=== PATIENT | female | born 1945 | race Caucasian/White ===

== ENCOUNTER → 2019-11-03 09:13 | Outpatient (CLI) | payer MEDICARE, OTHER, SELFPAY ==
--- NOTE | 2019-11-03 | DI.ECHO.S_ITS ---
[facility] +---------+ : : [address] : [address] [place] : : : : [id number] : : : : Phone: [phone]---------+ Echocardiogram Report + + :Name: JERONIMO FLETCHER Study Date: 11/03/2019 Height: 62 in : :[facility] Weight: 101 lb : : Gender: Female BSA: 1.4 m2 : :: 1945 Age: 74 yrs BP: 142/87 mmHg: :Reason For Study: Tachycardia : :Ordering Physician: ALMAZ, : :PREM Performed By: Mela Hilario : :Referring: PREM MUSE : + + Interpretation Summary The left ventricle is normal in size. The ejection fraction is estimated to be 65-70%. The right ventricle is grossly normal size. The right ventricle is hyperdynamic. There is moderate tricuspid regurgitation. Compared to the prior echo exam, there has been no change in TR severity. The right ventricular systolic pressure is estimated to be at least 32 mmHg based on an estimated right atrial pressure of 3 mm Hg. Compared to the prior echo exam, there has been a decrease in the severity of pulmonary hypertension. Mild atherosclerotic plaque(s) in the aortic arch. Mild atherosclerotic plaque(s) in the descending aorta. Procedure: A two-dimensional transthoracic echocardiogram with color flow and Doppler was performed. The study quality was technically adequate. Comparison is made with the echocardiogram of 11/14/2016. The patient was in sinus rhythm with heart rates between 77-85 bpm during the exam. Left Ventricle: The left ventricle is normal in size. Proximal septal thickening is noted. There is no echo evidence for significant left ventricular outflow tract obstruction. There is no thrombus. The ejection fraction is estimated to be 65-70%. There are no focal wall motion abnormalities. Diastolic parameters suggest a relaxation abnormality of the left ventricle, consistent with probable normal filling pressures. Right Ventricle: The right ventricle is grossly normal size. A calcified moderator band is seen in the right ventricle. The right ventricle is hyperdynamic. Atria: Both atria are normal in size. Both atria have remained unchanged in size since the prior echo exam. There is no Doppler evidence for an interatrial shunt. Mitral Valve: There is mild to moderate mitral annular calcification. There is no mitral valve stenosis. There is mild mitral regurgitation. Aortic Valve: The aortic valve is trileaflet. The aortic valve is slightly calcified. There is no aortic valve stenosis. No aortic regurgitation is present. Tricuspid Valve: The tricuspid valve leaflets are thickened and/or calcified, but open well. There is moderate tricuspid regurgitation. The right ventricular systolic pressure is estimated to be at least 32 mmHg based on an estimated right atrial pressure of 3 mm Hg. Compared to the prior echo exam, there has been no change in TR severity. Compared to the prior echo exam, there has been a decrease in the severity of pulmonary hypertension. Pulmonic Valve: The pulmonic valve is not well seen, but is grossly normal. There is mild to moderate pulmonic regurgitation. Great Vessels: The aortic root is normal size. There is aortic root sclerosis/calcification. The ascending aorta is normal in size. Mild atherosclerotic plaque(s) in the aortic arch. Mild atherosclerotic plaque(s) in the descending aorta. The IVC is of normal diameter and collapses greater than 50% with a sniff. This suggests a low right atrial pressure of 3 mm Hg. Pericardium/ Pleura There is no pericardial effusion. There is an anterior echo-free space consistent with a fat pad. There is no pleural effusion. MMode/2D Measurements & Calculations LVIDd: 3.9 cm LVOT diam: 1.9 cm LVIDs: 2.2 cm Ao root diam: 3.3 cm FS: 43.9 % asc Aorta Diam: 3.1 cm EPSS: 0.45 cm Ao Arch Diam (Prox Trans): 2.7 cm IVSd: 0.69 cm LVPWd: 0.59 cm LV hawley. diameter/BSA (cm/m^2): 2.7 LV sys. diameter/BSA (cm/m^2): 1.5 LA A2 area: 10.8 cm2 RA long axis: 4.2 cm LA A4 area: 12.4 cm2 RA area: 10.9 cm2 LA length (vol): 4.2 cm RA vol: 24.0 ml LA vol: 26.9 ml RA : 16.8 ml/m2 LA vol index: 18.8 ml/m2 IVC diam: 1.1 cm RVD1 (basal): 2.8 cm TAPSE: 1.7 cm Doppler Measurements & Calculations Ao V2 max: 140.4 cm/sec LVOT Max Minor: 104.8 cm/sec Ao V2 mean: 97.9 cm/sec LV V1 max P.4 mmHg Ao max P.9 mmHg LV V1 VTI: 21.0 cm Ao mean P.3 mmHg EFFIE(I,D): 1.9 cm2 Ao V2 VTI: 30.2 cm EFFIE(V,D): 2.0 cm2 sev ratio: 0.70 EFFIE indexed to BSA (cm^2/m^2): 1.3 MV E max minor: 83.1 cm/sec TR max minor: 269.4 cm/sec MV A max minor: 104.1 cm/sec TR max P.0 mmHg MV E/A: 0.80 PA V2 max: 112.4 cm/sec Med Peak E' Minor: 9.3 cm/sec PA V2 mean: 72.1 cm/sec E/E' med: 8.9 PA mean P.5 mmHg Lat Peak E' Minor: 11.3 cm/sec PA pr(Accel): 32.8 mmHg E/E' lat: 7.3 E/e' average: 8.1 MV dec time: 0.17 sec SV(LVOT): 56.9 ml Reading Physician:05:54 PM
== END ==
PROVIDERS: Family Provider Physician Assistant Medical; PCP Physician Assistant Medical; Referring Provider Physician Assistant Medical; Visit Provider Internal Medicine Cardiovascular Disease
DX: I08.1 Rheumatic disorders of both mitral and tricuspid valves (principal); I70.0 Atherosclerosis of aorta; I47.1 Supraventricular tachycardia
CPT/HCPCS: 93306

== ENCOUNTER 2021-02-01 07:41 | Inpatient (IN) | payer MEDICARE, OTHER, SELFPAY ==
[2021-02-01] VITALS (22 sets, daily range): BP systolic 136–188; BP diastolic 70–88; PULSE 66–90; RESP 15–18; TEMP 36.1–37.1; O2SAT 95–100; BMI 18.8
--- NOTE | 2021-02-01 07:44 | DI.CT.S_ITS ---
PROCEDURE: CT STROKE INDICATIONS: code stroke confussion TECHNIQUE: Noncontrast 4.5 mm thick angled axial sections acquired from the foramen magnum to the vertex, with coronal reformats. For radiation dose reduction, the following was used: automated exposure control, adjustment of mA and/or kV according to patient size. COMPARISON: None. FINDINGS: Image quality: Excellent. CSF spaces: Basal cisterns are patent. No extra-axial fluid collections. The ventricles are symmetric in size and shape. Brain: No intracranial bleeds or masses. There is mild cerebral volume loss for age, with resultant ventricular and sulcal prominence. There are mild periventricular and deep white matter chronic small vessel ischemic changes. There is intracranial internal carotid artery atherosclerosis. Skull and face: Calvarium and visualized facial bones appear intact, without suspicious lesions. Sinuses: Visualized sinuses and mastoids are clear. IMPRESSION: 1. No acute intracranial abnormalities. 2. Cerebral volume loss and chronic microvascular ischemic changes. The result was discussed with Dr. Sonny toth in ER on 08/11/2020 at 80:01 hours.. This study fulfills neurological imaging criteria for inclusion or exclusion of acute stroke therapies based on available published neurological guidelines. Dictated by: Norman Coronado M.D. on 02/01/2021 at 8:00 Approved by: Norman Coronado M.D. on 02/01/2021 at 8:01
--- NOTE | 2021-02-01 07:49 | DI.CT.S_ITS ---
PROCEDURE: CT ANGIO HEAD AND NECK INDICATIONS: stroke confussion TECHNIQUE: After the administration of intravenous contrast, 1 mm thick sections acquired from the aortic arch through the [place]. Post-contrast 4.5 mm thick sections then re-acquired from the foramen magnum to the vertex. 3-dimensional qotgmqd-nbnocsgir-jnqetfnnqy (MIP) and/or volume rendering reformats were acquired of the central intracranial vasculature and neck separately. COMPARISON: [facility], CT, CT STROKE, 02/01/2021, 7:50. FINDINGS: BRAIN: CSF spaces: Ventricles are grossly unremarkable. Basal cisterns are patent. No extra-axial fluid collections. Brain: No midline shift. No intracranial bleeds or masses. [place]-white matter interface appears intact. Skull and face: Calvarium and facial bones appear intact, without suspicious lesions. Orbits appear normal. Sinuses: Sinuses and mastoids are clear. HEAD CT ANGIOGRAPHY: Anterior circulation: Intracranial internal carotid arteries (ICA): Patent. Anterior cerebral arteries (LUMA): Patent. Middle cerebral arteries (MCA): Patent. Other: No aneurysms are seen. Posterior circulation: Visualized portions of the vertebral arteries: Patent. Basilar artery: Patent. Posterior cerebral arteries ([employer]): Patent. Other: No aneurysms are seen. NECK CT ANGIOGRAPHY: Carotid atherosclerotic burden: Very minimal. Minimal plaque seen in the proximal left ICA. Common carotid artery (CCA) origins: Patent. Common carotid arteries (CCA): Patent. Internal carotid arteries (ICA): Patent. Vertebral artery origins: Patent Extracranial vertebral arteries: Patent. Soft tissues: Visualized neck soft tissues demonstrate no suspicious abnormalities. Bones: No suspicious bony lesions. Cervical spondylosis and facet arthropathy. IMPRESSION: No focal intracranial stenosis or occlusion No hemodynamically significant (>50%) ICA stenosis Any quantitative measurements of stenosis were performed using NASCET criteria. Dictated by: Scooby Monk M.D. on 02/01/2021 at 8:08 Approved by: Scooby Monk M.D. on 02/01/2021 at 8:13
--- NOTE | 2021-02-01 07:51 | ED_ITS ---
HPI - General Adult General Chief complaint: Neuro Symptoms/Deficit Stated complaint: numb on left side Time Seen by Provider: 02/01/21 07:44 Source: patient and family () Mode of arrival: Ambulatory History of Present Illness HPI narrative: Patient is a 76-year-old female who arrived by private vehicle with her for evaluation of numbness on her left side. Approximately 1 hour prior to arrival here in the emergency department she woke up from sleep. She was asymptomatic at that time. She was lying in bed with her . She started having numbness and tingling in her left foot which then progressed up the left side of her body. She denied any other associated symptoms to include speech difficulties, headache, vision changes, chest pain, palpitations, shortness of breath, abdominal pain, nausea vomiting. She has not had any urinary symptoms or change in bowel habits. No rashes. Has never had a stroke before. Not on anticoagulation. She did not notice any muscle weakness on the left side. Since the onset of the symptoms she does feel like her symptoms have improved although she has not back to ?normal ?again. The tingling is gone however she does feel some differences on the left side compared to the right. These differences are mostly located in her left foot and left hand and on the left side of her face. Related Data Home Medications Medication Instructions Recorded Confirmed aspirin 81 mg chewable tablet 162 mg PO QDAY #0 02/24/11 Allergies Allergy/AdvReac Type Severity Reaction Status Date / Time CODEINE Allergy Mild HIVES Uncoded 07/08/17 12:19 Review of Systems Constitutional Constitutional: Reports system reviewed and no additional complaints, except as documented Eyes Eyes: Reports system reviewed and no additional complaints, except as documented ENT Ears, Nose, Mouth, and Throat: Reports system reviewed and no additional complaints, except as documented Cardiovascular Cardiovascular: Reports system reviewed and no additional complaints, except as documented Respiratory Respiratory: Reports system reviewed and no additional complaints, except as documented Gastrointestinal Gastrointestinal: Reports system reviewed and no additional complaints, except as documented Genitourinary Genitourinary: Reports system reviewed and no additional complaints, except as documented Musculoskeletal Musculoskeletal: Reports system reviewed and no additional complaints, except as documented Integumentary/Breasts Skin/Breast: Reports system reviewed and no additional complaints, except as documented Neurologic Neurologic: Reports system reviewed and no additional complaints, except as documented Psychiatric Psychiatric: Reports system reviewed and no additional complaints, except as documented Endocrine Endocrine: Reports system reviewed and no additional complaints, except as documented Hematologic/Lymphatic On Anticoagulants: No Allergic/Immunologic Allergic/Immunologic: Reports system reviewed and no additional complaints, except as documented Patient History Medical History Hypertension Social History marital status: lives independently: Yes Smoking Status: Former smoker Exam Initial Vital Signs Initial Vital Signs: Vital Signs Temperature 98.6 F 02/01/21 07:45 Pulse Rate 90 02/01/21 07:45 Respiratory Rate 18 02/01/21 07:45 Blood Pressure 184/88 H 02/01/21 07:45 Pulse Oximetry 100 02/01/21 07:45 Const General: cooperative, healthy appearing, comfortable, well developed and well groomed Limitations: mental status not altered HENMT Head: normal to inspection and normocephalic Face and sinus: normal facial exam Mouth: oral mucosae normal Eyes Pupils: PERRL EOM: EOM intact bilaterally Neck Neck: normal visual inspection Chest Chest: normal inspection of the chest Resp Effort & Inspection: normal respiratory effort Auscultation: clear to auscultation bilaterally Cardio Rate: regular rate Rhythm: regular rhythm GI Inspection: normal to inspection and non-distended Palpation: soft and No firm Skin General: no rashes or lesions noted Neuro General: patient alert, patient awake and patient oriented x3 Cranial Nerves: other (Subjective decreased sensation left side of face without motor involvement) Cognition: normal cognition Motor: muscle tone normal throughout Sensory Exam: other (Decreased sensation to light touch left side of face left hand and left jenn) Coordination: nweoxl-vl-rieg test normal Extrem General: normal to inspection, capillary refill normal and No edema Psych Appearance: grossly normal and well kempt Scores ABCD2 Age >= 60 years: yes Initial BP. Either SBP >= 140 or DBP >= 90.: yes Clinical features of the TIA: other symptoms Duration of symptoms: >= 60 minutes History of diabetes: no ABCD2 Score: 4 GCS [place] coma scale eye opening: Spontaneous [place] coma scale verbal response: Orientated [place] coma scale motor response: Obey commands [place] coma scale total score: 15 NIH Stroke Scale Level of Conciousness: Alert, keenly responsive Ask month/age: Answers both questions correctly. Open/close eyes, close hand: Performs both tasks correctly Best gaze horizontal: Normal Visual mc: No visual loss Facial palsy: Normal symetrical movement Left arm drift: No drift for full 10 sec Right arm drift: No drift for full 10 sec Left leg drift: No drift for full 5 sec Right leg drift: No drift for full 5 sec Limb ataxia: Absent Sensory on face/arms/legs: Mild to moderate sensory loss, can tell touch Best language: No aphasia, normal Dysarthria: Normal Extinction or inattention: No abnormality Total NIH Stroke scale score: 1 Course Orders Ordered: ED Orders 02/01/21 07:44 CT Stroke Stat 02/01/21 07:46 EKG-12 Lead Stat 02/01/21 07:49 CT angio head and neck Stat 02/01/21 08:00 Complete Blood Count AUTO DIFF Stat Comprehensive Metabolic Panel Stat Ethanol (ETOH) Stat Lipase Stat Partial Thromboplastin Time Stat Prothrombin Time INR Stat Thyroid Stimulating Hormone Stat Troponin & CK Cardiac Panel Stat 02/01/21 08:20 COVID19 - ADMIT (CHIEF SAFETY OFFICER swab/PCR) Stat 02/01/21 09:51 MR head/brain wo con Stat Sodium Chloride (Normal Saline 0.9%) 1,000 mls @ 125 mls/hr IV CONT DANIEL Last Admin: 02/01/21 08:40 Dose: 125 mls/hr Documented by: SKYLAR Discontinued Medications Aspirin (Aspirin 81 Mg Chew Tab) 324 mg PO NOW ONE Stop: 02/01/21 09:33 Last Admin: 02/01/21 10:00 Dose: 324 mg Documented by: SKYLAR Clopidogrel Bisulfate (Clopidogrel 75 Mg Tablet) 300 mg PO NOW ONE Stop: 02/01/21 09:50 Last Admin: 02/01/21 10:00 Dose: 300 mg Documented by: SKYLAR Vital Signs Vital signs: Vital Signs - 8 hr 02/01/21 07:45 02/01/21 08:11 02/01/21 08:30 Temperature 98.6 F Pulse Rate 90 85 79 Respiratory Rate 18 Blood Pressure 184/88 H 168/77 H Pulse Oximetry 100 98 99 02/01/21 09:00 02/01/21 09:30 02/01/21 09:34 Temperature Pulse Rate 75 78 76 Respiratory Rate 15 Blood Pressure 153/73 H 188/83 H Pulse Oximetry 98 100 100 02/01/21 11:11 02/01/21 11:32 Temperature Pulse Rate 88 Respiratory Rate 18 Blood Pressure 180/80 H Pulse Oximetry 98 97 Medical Decision Making Lab Data Lab results reviewed: Yes I reviewed the patient's lab results. Result diagrams: 02/01/21 08:00 02/01/21 08:00 Labs: Lab Results 02/01/21 02/01/21 02/01/21 Range/Units 08:00 08:00 08:00 WBC 4.2 L (4.5-11.0) X10^3/uL RBC 3.98 L (4.0-5.2) X10^6/uL Hgb 12.4 (12.0-16.0) g/dL Hct 36.9 (36-46) % MCV 92.7 (80-100) fL MCH 31.3 (26-34) PG MCHC 33.7 (30-36) % RDW 13.0 (11.6-14.8) % Plt Count 195 (150-400) X10^3/uL Neut % (Auto) 54.5 (50-75) % Lymph % (Auto) 26.3 (25-40) % [place] % (Auto) 15.1 H (3-14) % Eos % (Auto) 3.6 (2-4) % Baso % (Auto) 0.5 (0-2) % Neut # (Auto) 2300 (3780-2012) /uL Lymph # (Auto) 1100 (1862-3181) /uL [place] # (Auto) 600 (0-900) /uL Eos # (Auto) 100 (0-450) /uL Baso # (Auto) 0 (0-100) /uL PT 12.0 (10.1-12.7) SECONDS INR 1.1 (0.9-1.3) APTT 28 (26.4-36.2) SECONDS Sodium 131 L (137-145) mmol/L Potassium 3.8 (3.4-5.1) mmol/L Chloride 98 (98-107) mmol/L Carbon Dioxide 28 (22-32) mmol/L BUN 18 H (7-17) mg/dL Creatinine 0.74 (0.52-1.04) mg/dL Estimated GFR > 60.0 (>60) mL/min BUN/Creatinine Ratio 24.3 H (6-22) Glucose 112 H (80-110) mg/dL Calcium 7.9 L (8.4-10.2) mg/dL Total Bilirubin 0.6 (0.2-1.3) mg/dL AST 25 (14-36) IU/L ALT 15 (<35) IU/L Alkaline Phosphatase 52 (38-126) U/L Total Creatine Kinase 38 (30-135) U/L CK-MB (CK-2) TNP CK-MB (CK-2) Rel Index TNP Troponin I < 0.012 (0.01-0.034) ng/mL Total Protein 5.6 L (6.3-8.2) g/dL Albumin 3.1 L (3.5-5.0) g/dL Globulin 2.5 (1.7-4.1) g/dL Albumin/Globulin Ratio 1.2 (1.0-2.8) Lipase 87 (23-300) U/L TSH (0.47-4.68) uIU/mL Ethyl Alcohol < 10 ( - 10) mg/dL SARS-CoV-2 (PCR) (Negative) 02/01/21 02/01/21 Range/Units 08:00 08:20 WBC (4.5-11.0) X10^3/uL RBC (4.0-5.2) X10^6/uL Hgb (12.0-16.0) g/dL Hct (36-46) % MCV (80-100) fL MCH (26-34) PG MCHC (30-36) % RDW (11.6-14.8) % Plt Count (150-400) X10^3/uL Neut % (Auto) (50-75) % Lymph % (Auto) (25-40) % [place] % (Auto) (3-14) % Eos % (Auto) (2-4) % Baso % (Auto) (0-2) % Neut # (Auto) (8114-5851) /uL Lymph # (Auto) (5597-1079) /uL [place] # (Auto) (0-900) /uL Eos # (Auto) (0-450) /uL Baso # (Auto) (0-100) /uL PT (10.1-12.7) SECONDS INR (0.9-1.3) APTT (26.4-36.2) SECONDS Sodium (137-145) mmol/L Potassium (3.4-5.1) mmol/L Chloride (98-107) mmol/L Carbon Dioxide (22-32) mmol/L BUN (7-17) mg/dL Creatinine (0.52-1.04) mg/dL Estimated GFR (>60) mL/min BUN/Creatinine Ratio (6-22) Glucose (80-110) mg/dL Calcium (8.4-10.2) mg/dL Total Bilirubin (0.2-1.3) mg/dL AST (14-36) IU/L ALT (<35) IU/L Alkaline Phosphatase (38-126) U/L Total Creatine Kinase (30-135) U/L CK-MB (CK-2) CK-MB (CK-2) Rel Index Troponin I (0.01-0.034) ng/mL Total Protein (6.3-8.2) g/dL Albumin (3.5-5.0) g/dL Globulin (1.7-4.1) g/dL Albumin/Globulin Ratio (1.0-2.8) Lipase (23-300) U/L TSH 3.35 (0.47-4.68) uIU/mL Ethyl Alcohol ( - 10) mg/dL SARS-CoV-2 (PCR) Negative (Negative) Point of Care Testing Glucose POC 107 Urine Dip Bedside Urine Glucose Negative Bedside Urine Bilirubin - Negative Bedside Urine Ketone - Negative Urine Specific [place] 1.005 Bedside Urine Occult Blood - Negative Bedside Urine pH 7.5 Bedside Urine Protein - Negative Bedside Urine Urobilinogen - Negative Bedside Urine Nitrite - Negative Bedside Urine Leukocytes - Negative Esterase Point of care testing: Point of Care Testing Glucose POC 107 Urine Dip Bedside Urine Glucose Negative Bedside Urine Bilirubin - Negative Bedside Urine Ketone - Negative Urine Specific [place] 1.005 Bedside Urine Occult Blood - Negative Bedside Urine pH 7.5 Bedside Urine Protein - Negative Bedside Urine Urobilinogen - Negative Bedside Urine Nitrite - Negative Bedside Urine Leukocytes - Negative Esterase Imaging Data CT scan - head: Radiologist's Impression: [address] [address] [address] Scan Report Signed Patient: Arin Vázquez MR#: [id number] : 1945 Acct:[id number] Age/Sex: 76 / F Date of Service: 02/01/21 Loc: ED Accession Number: [id number] ?? Procedure: CT Stroke Ordering Provider: Clay Dennis D.O. PROCEDURE:? CT STROKE ? INDICATIONS:? code stroke confussion ? TECHNIQUE:? Noncontrast 4.5 mm thick angled axial sections acquired from the foramen magnum to the vertex, with coronal reformats.? For radiation dose reduction, the following was used:? automated exposure control, adjustment of mA and/or kV according to patient size.? ? COMPARISON:? None. ? FINDINGS:? Image quality:? Excellent.? ? CSF spaces:? Basal cisterns are patent.? No extra-axial fluid collections.? The ventricles are symmetric in size and shape.? ? Brain:? No intracranial bleeds or masses.? There is mild cerebral volume loss for age, with resultant ventricular and sulcal prominence.? There are mild periventricular and deep white matter chronic small vessel ischemic changes.? There is intracranial internal carotid artery atherosclerosis.? ? Skull and face:? Calvarium and visualized facial bones appear intact, without suspicious lesions.? ? Sinuses:? Visualized sinuses and mastoids are clear.? ? IMPRESSION:? ? 1. No acute intracranial abnormalities. ? 2. Cerebral volume loss and chronic microvascular ischemic changes. ? The result was discussed with Dr. Sonny toth in ER on 08/11/2020 at 80:01 hours.. ? This study fulfills neurological imaging criteria for inclusion or exclusion of acute stroke therapies based on available published neurological guidelines.? ? ? Dictated by: Norman Coronado M.D. on 02/01/2021 at 8:00 ? ? Approved by: Norman Coronado M.D. on 02/01/2021 at 8:01? CTA - brain/neck: Radiologist's Impression: [address] [address] [address] Scan Report Signed Patient: Arin Vázquez MR#: [id number] : 1945 Acct:[id number] Age/Sex: 76 / F Date of Service: 02/01/21 Loc: ED Accession Number: [id number] ?? Procedure: CT angio head and neck Ordering Provider: Lanker,Clay D.O. PROCEDURE:? CT ANGIO HEAD AND NECK ? INDICATIONS:? stroke confussion ? TECHNIQUE:? ? After the administration of intravenous contrast, 1 mm thick sections acquired from the aortic arch through the [place] of [place].? Post-contrast 4.5 mm thick sections then re-acquired from the foramen magnum to the vertex.? 3-dimensional iaeiana-cpmomured-ltnvrvptcp (MIP) and/or volume rendering reformats were acquired of the central intracranial vasculature and neck separately. ? COMPARISON:? [facility], CT, CT STROKE, 02/01/2021, 7:50. ? FINDINGS: BRAIN:? CSF spaces:? Ventricles are grossly unremarkable.? Basal cisterns are patent.? No extra-axial fluid collections.? ? Brain:? No midline shift. No intracranial bleeds or masses.? [place]-white matter interface appears intact.? ? Skull and face:? Calvarium and facial bones appear intact, without suspicious lesions.? Orbits appear normal.? ? Sinuses:? Sinuses and mastoids are clear.? ? HEAD CT ANGIOGRAPHY:? Anterior circulation:? Intracranial internal carotid arteries (ICA): Patent. Anterior cerebral arteries (LUMA): Patent. Middle cerebral arteries (MCA): Patent.? Other: No aneurysms are seen.? ? Posterior circulation:? Visualized portions of the vertebral arteries: Patent. Basilar artery: Patent. Posterior cerebral arteries (FIELD RESEARCH ASSOCIATE): Patent. Other: No aneurysms are seen.? ? NECK CT ANGIOGRAPHY:? Carotid atherosclerotic burden:? Very minimal.? Minimal plaque seen in the proximal left ICA. Common carotid artery (CCA) origins:? Patent.? Common carotid arteries (CCA): Patent. Internal carotid arteries (ICA): Patent.? Vertebral artery origins: Patent? Extracranial vertebral arteries: Patent.? ? Soft tissues:? Visualized neck soft tissues demonstrate no suspicious abnormalities.? ? Bones:? No suspicious bony lesions.? Cervical spondylosis and facet arthropathy. ? IMPRESSION: No focal intracranial stenosis or occlusion ? No hemodynamically significant (>50%) ICA stenosis ? ? Any quantitative measurements of stenosis were performed using NASCET criteria.? ? ? Dictated by: Scooby Monk M.D. on 02/01/2021 at 8:08 ? ? Approved by: Scooby Monk M.D. on 02/01/2021 at 8:13?? Brain MRI: Radiologist's Impression: [place] [address] Magnetic Resonance Report Signed Patient: Arin Vázquez MR#: [id number] : 1945 Acct:[id number] Age/Sex: 76 / F Date of Service: 02/01/21 Loc: ED Accession Number: [id number] ?? Procedure: MR head/brain wo con Ordering Provider: Clay Dennis D.O. PROCEDURE:? MR HEAD/BRAIN WO CON ? INDICATIONS:? TIA ? TECHNIQUE:? Non-contrast axial T1 spin echo, axial T2 fast spin echo, sagittal and axial FLAIR, coronal T2 fast spin echo, axial gradient echo, axial diffusion and ADC through the brain.? ? COMPARISON:? [facility], CT, CT ANGIO HEAD AND NECK, 02/01/2021, 7:56.? [facility], CT, CT STROKE, 02/01/2021, 7:50. ? FINDINGS:? Image quality:? Excellent.? ? CSF spaces:? Ventricles appear symmetric in size and shape.? Basal cisterns are patent.? No extra-axial fluid collections.? ? Brain:? There is a small focus of restricted diffusion involving the right thalamus, compatible with acute infarct.? No intracranial bleeds or mass effects.? There is cerebral volume loss for age.? There are mild periventricular and deep white matter chronic small vessel ischemic changes.? Brainstem appears normal.? No chronic ischemic insults.? Normal intravascular flow voids are present.? ? Skull and face:? Calvarial bone marrow is normal in signal.? Orbits are normal.? ? Sinuses:? Sinuses and mastoids are clear.? ? IMPRESSION:? ? 1. There is an acute lacunar infarct involving the right thalamus. ? ? 2. Cerebral volume loss and chronic microvascular ischemic changes. ? The result was discussed with Dr. Dennis. ? Dictated by: Norman Coronado M.D. on 02/01/2021 at 11:13 ? ? Approved by: Norman Coronado M.D. on 02/01/2021 at 11:18 ECG Data Attestation: I personally reviewed and interpreted this ECG as follows: Interpretation: Sinus rhythm Ventricular rate 85 Normal axis Normal QRS Normal QTC No ST T wave changes MDM Narrative Medical decision making narrative: GCS of 15. Initial NIH score of 1. Her symptoms have not changed since arrival here in the ER. Patient not a candidate for tPA given her presenting symptoms. MRI of head was ordered which did show old lacunar infarct. Patient was given aspirin and Plavix. Will admit to the hospital for further evaluation. Discussed the case with Dr. Martinez with [facility] who accepts the patient. Discussed the need for admission with the patient she expressed understanding agreement. Critical Care Time Critical Care Time Critical Care Time: Yes Total Critical Care Time: 35 Attestation: The high probability of a clinically significant, sudden or life threatening deterioration of the neurologic system(s) required my full and direct attention, intervention and personal management. The aggregate critical care time was [35 minutes. This time is in addition to time spent performing reported procedures but includes the following: [X Data Review and interpretation [X Patient assessment and monitoring of vital signs [X Documentation [X Medication orders and management Discharge Plan Departure Patient Disposition: Admitted As Inpatient Clinical Impression: Cerebrovascular accident Admit Date/Time: 02/01/21 11:32 Admit Provider: Ulises Martinez
[2021-02-01 08:10] LABS: Add Manual Diff / Slide Review NO; Basophils Absolute Auto 0 /uL (0-100); Basophils Percent Auto 0.5 % (0-2); Eosinophils Absolute Auto 100 /uL (0-450); Eosinophils Percent Auto 3.6 % (2-4); Hematocrit 36.9 % (36-46); Hemoglobin 12.4 g/dL (12.0-16.0); Lymphocytes Absolute Auto 1100 /uL (1100-4500); Lymphocytes Percent Auto 26.3 % (25-40); Mean Corpuscular HGB Conc 33.7 % (30-36); Mean Corpuscular Hemoglobin 31.3 PG (26-34); Mean Corpuscular Volume 92.7 fL (80-100); Monocytes Absolute Auto 600 /uL (0-900); Monocytes Percent Auto 15.1 % (3-14); Neutrophils Absolute Auto 2300 /uL (1500-7000); Neutrophils Percent Auto 54.5 % (50-75); Platelet Count 195 X10^3/uL (150-400); Red Blood Cell Count 3.98 X10^6/uL (4.0-5.2); White Blood Cell Count 4.2 X10^3/uL (4.5-11.0)
[2021-02-01 08:18] LABS: INR 1.1 (0.9-1.3)
[2021-02-01 08:20] LABS: PTT Partial Thromboplastin Tim 28 SECONDS (26.4-36.2)
[2021-02-01 08:23] LABS: Alanine Aminotransferase 15 IU/L (<35); Albumin 3.1 g/dL (3.5-5.0); Albumin Globulin Ratio 1.2 (1.0-2.8); Alkaline Phosphatase 52 U/L (38-126); Aspartate Aminotransferase 25 IU/L (14-36); BUN Creatinine Ratio 24.3 (6-22); Bilirubin Total 0.6 mg/dL (0.2-1.3); Blood Urea Nitrogen 18 mg/dL (7-17); Calcium 7.9 mg/dL (8.4-10.2); Carbon Dioxide 28 mmol/L (22-32); Chloride 98 mmol/L (98-107); Creatine Kinase 38 U/L (30-135); Estimated Glomerular Filt Rate > 60.0 mL/min (>60); Ethanol (ETOH) < 10 mg/dL; Globulin 2.5 g/dL (1.7-4.1); Glucose 112 mg/dL (80-110); HEMOLYSIS 28 (0-50); Lipase 87 U/L (23-300); Potassium 3.8 mmol/L (3.4-5.1); Sodium 131 mmol/L (137-145); Total Protein 5.6 g/dL (6.3-8.2)
--- NOTE | 2021-02-01 08:27 | PC.NURSE ---
reports symptoms still present but improving some, less numbness/tingling. feels sensation different still to L foot versus right. sensation of touch to left arm, left face equal but still feels different on left face, left arm, left leg from toes up. sensation began at 0630 am started at toes and progressed up body it felt like my foot was asleep like i slept on it. at triage and ct pt reports I cant feel the floor with my foot
[2021-02-01 08:34] LABS: Troponin I < 0.012 ng/mL (0.01-0.034)
[2021-02-01] MEDS: SODIUM CHLORIDE 0.9% 1,000 ML 125 ML IV (08:40)
[2021-02-01 08:57] LABS: Thyroid Stimulating Hormone 3.35 uIU/mL (0.47-4.68)
[2021-02-01 09:41] LABS: COVID19 - ADMIT (NP swab/PCR) Negative (Negative)
--- NOTE | 2021-02-01 09:51 | DI.MRI.S_ITS ---
PROCEDURE: MR HEAD/BRAIN WO CON INDICATIONS: TIA TECHNIQUE: Non-contrast axial T1 spin echo, axial T2 fast spin echo, sagittal and axial FLAIR, coronal T2 fast spin echo, axial gradient echo, axial diffusion and ADC through the brain. COMPARISON: [facility], CT, CT ANGIO HEAD AND NECK, 02/01/2021, 7:56. [facility], CT, CT STROKE, 02/01/2021, 7:50. FINDINGS: Image quality: Excellent. CSF spaces: Ventricles appear symmetric in size and shape. Basal cisterns are patent. No extra-axial fluid collections. Brain: There is a small focus of restricted diffusion involving the right thalamus, compatible with acute infarct. No intracranial bleeds or mass effects. There is cerebral volume loss for age. There are mild periventricular and deep white matter chronic small vessel ischemic changes. Brainstem appears normal. No chronic ischemic insults. Normal intravascular flow voids are present. Skull and face: Calvarial bone marrow is normal in signal. Orbits are normal. Sinuses: Sinuses and mastoids are clear. IMPRESSION: 1. There is an acute lacunar infarct involving the right thalamus. 2. Cerebral volume loss and chronic microvascular ischemic changes. The result was discussed with Dr. Dennis. Dictated by: Norman Coronado M.D. on 02/01/2021 at 11:13 Approved by: Norman Coronado M.D. on 02/01/2021 at 11:18
[2021-02-01] MEDS: CLOPIDOGREL 75 MG TABLET 300 MG PO (10:00)
[2021-02-01] MEDS: ASPIRIN 81 MG CHEW TAB 324 MG PO (10:00)
--- NOTE | 2021-02-01 10:08 | RT ---
responded to Code Stroke, airway patent and no distress noted and on room air. released by rn
--- NOTE | 2021-02-01 16:06 | PC.NURSE ---
Day shift: Pt on AC unit from ED at approx 1607. A&Ox4. Denies any pain, chest pain or nausea. Tele placed at [address] Martinez. RA 97%. VS WNL. Oreinted to room and call light. She will be 1 person assist w/ FWW and gait belt at this time. Also high fall risk due to left sided weakness. HH diet per DR Martinez. She has passed swallow eval by ED RN but will continue to monitor this ability on AC unit. She agrees to not get OOB w/o help from staff. Bed alarm is on and call light in reach.
[2021-02-01] MEDS: METOPROLOL ER 25 MG TABLET PO (17:45)
--- NOTE | 2021-02-01 18:35 | PM.HP.1 ---
History of Present Illness History of Present Illness Date Patient Seen: 02/01/21 Time Patient Seen: 18:35 Date of Onset of Symptoms: 02/01/21 Chief complaint: numb on left side Narrative: This is a 76-year-old female with a past medical history of PVCs and hypothyroidism who presented with acute onset of left-sided numbness starting at 7:30 a.m. this morning. The patient 1st noticed some tingling and numbness in her left foot, shortly after she noticed that her left hand and arm was also numb, followed by her face. At that point she came to the emergency room. She had no weakness, slurred speech, headache, vision changes. She had some difficulty ambulating due to her decreased sensation. She denies any recent fevers, chills, chest pain, shortness of breath, lower extremity edema, nausea, vomiting, dysuria, or urinary frequency. In the emergency room, the patient was hypertensive, but the remainder of her vital signs are unremarkable. Initial laboratory evaluation showed a mild hyponatremia with sodium of 131, but the remainder of her laboratory evaluation was unremarkable. COVID-[address] angiogram of her head and neck were unremarkable. MRI showed an acute infarct in her right thalamus. Patient was given aspirin, as well as a loading dose of Plavix. She was admitted for further management her acute stroke. Patient History Medical History (Updated 02/01/21 @ 18:38 by Ulises Martinez DO) Hypothyroidism PVC (premature ventricular contraction) Surgical History (Updated 02/01/21 @ 18:37 by Ulises Martinez DO) No pertinent past surgical history Family & Social History Family History (Updated 02/01/21 @ 18:38 by Ulises Martinez DO) Mother CVA (cerebral vascular accident) Grandmother CVA (cerebral vascular accident) Mother No problems noted. Father Alcoholism Social History: household members spouse lives independently Yes Safety & Behavioral: Feels Safe in Current Yes Environment Been Physically Hurt or No Threatened By a Person Suicidal Ideation Description None Suicide Plan Description No Plan Tobacco & Substance use: Smoking Status Never smoker alcohol intake never alcohol intake frequency 0-2 drinks per day Substance Use Type does not use Meds Home Medications and Allergies Home Medications Medication Instructions Recorded Confirmed Type levothyroxine 50 mcg tablet 50 mcg PO QAM 02/01/21 02/01/21 History (Synthroid) metoprolol succinate 25 mg 25 mg PO QAM 02/01/21 02/01/21 History tablet,extended release 24 hr Allergies Allergy/AdvReac Type Severity Reaction Status Date / Time codeine Allergy Mild Hives Verified 02/01/21 16:26 Review of Systems Review of Systems Narrative: All other systems reviewed with the patient and are negative unless otherwise stated. Exam Vital Signs (past 8 hours): - 02/01/21 11:11 02/01/21 11:32 02/01/21 11:33 Pulse Rate 88 74 Respiratory Rate 18 Blood Pressure 180/80 H 166/72 H Pulse Oximetry 98 97 98 02/01/21 12:00 02/01/21 13:11 02/01/21 13:12 Pulse Rate 67 75 75 Respiratory Rate 17 17 Blood Pressure 159/71 H 147/70 H Pulse Oximetry 100 100 100 02/01/21 13:30 02/01/21 14:00 02/01/21 14:30 Pulse Rate 76 72 75 Respiratory Rate Blood Pressure 151/70 H Pulse Oximetry 99 100 100 02/01/21 17:23 02/01/21 17:45 02/01/21 18:16 Pulse Rate 66 76 Respiratory Rate Blood Pressure Pulse Oximetry 97 Oxygen Delivery Method Room Air Narrative Exam Narrative: GENERAL APPEARANCE: Well developed, well nourished, but thin female, appears stated age in no acute distress. SKIN: Inspection of the skin reveals no rashes, ulcerations or petechiae. HEENT: Normocephalic atraumatic, extraocular muscles are intact, oropharynx is clear and mucous membranes are moist, neck is supple without adenopathy NECK: Supple and symmetric. There was no thyroid enlargement, and no tenderness, or masses were felt. CHEST: Normal AP diameter and normal contour without any kyphoscoliosis. LUNGS: Auscultation of the lungs revealed no wheezes, rhonchi, or rales. CARDIOVASCULAR: There was a regular rate and rhythm without any murmurs, gallops, rubs. Peripheral pulses were 2+ and symmetric. ABDOMEN: Soft and nontender with normal bowel sounds. No ascites was noted. MUSCULOSKELETAL: There was no tenderness or effusions noted. Muscle strength and tone were normal. EXTREMITIES: No cyanosis, clubbing or edema. NEUROLOGIC: Alert and oriented x 3. Normal affect. Strength is +5/5 in the Upper Extremities and Lower Extremities Bilaterally. Sensation to touch was diminished on her left side, including face Objective Labs Result Diagrams: 02/01/21 08:00 02/01/21 08:00 Labs: Laboratory Results - last 24 hr 02/01/21 02/01/21 02/01/21 08:00 08:00 08:00 WBC 4.2 L RBC 3.98 L Hgb 12.4 Hct 36.9 MCV 92.7 MCH 31.3 MCHC 33.7 RDW 13.0 Plt Count 195 Neut % (Auto) 54.5 Lymph % (Auto) 26.3 [place] % (Auto) 15.1 H Eos % (Auto) 3.6 Baso % (Auto) 0.5 Neut # (Auto) 2300 Lymph # (Auto) 1100 [place] # (Auto) 600 Eos # (Auto) 100 Baso # (Auto) 0 PT 12.0 INR 1.1 APTT 28 Sodium 131 L Potassium 3.8 Chloride 98 Carbon Dioxide 28 BUN 18 H Creatinine 0.74 Estimated GFR > 60.0 BUN/Creatinine Ratio 24.3 H Glucose 112 H Calcium 7.9 L Total Bilirubin 0.6 AST 25 ALT 15 Alkaline Phosphatase 52 Total Creatine Kinase 38 CK-MB (CK-2) TNP CK-MB (CK-2) Rel Index TNP Troponin I < 0.012 Total Protein 5.6 L Albumin 3.1 L Globulin 2.5 Albumin/Globulin Ratio 1.2 Lipase 87 TSH Ethyl Alcohol < 10 SARS-CoV-2 (PCR) 02/01/21 02/01/21 08:00 08:20 WBC RBC Hgb Hct MCV MCH MCHC RDW Plt Count Neut % (Auto) Lymph % (Auto) [place] % (Auto) Eos % (Auto) Baso % (Auto) Neut # (Auto) Lymph # (Auto) [place] # (Auto) Eos # (Auto) Baso # (Auto) PT INR APTT Sodium Potassium Chloride Carbon Dioxide BUN Creatinine Estimated GFR BUN/Creatinine Ratio Glucose Calcium Total Bilirubin AST ALT Alkaline Phosphatase Total Creatine Kinase CK-MB (CK-2) CK-MB (CK-2) Rel Index Troponin I Total Protein Albumin Globulin Albumin/Globulin Ratio Lipase TSH 3.35 Ethyl Alcohol SARS-CoV-2 (PCR) Negative Assessment & Plan Assessment & Plan narrative: This is a 76-year-old female with a past medical history of PVCs and hypothyroidism who presented with acute onset of left-sided numbness starting at 7:30 a.m. this morning. She was admitted for further management her acute stroke. 1. Acute CVA, present on admission - MRI confirmed R thalamic acute infarct. - given asa and plavix loading dose in the ER. Continue asa and 75 mg plavix for 21 days. Then either asa or plavix for life. - start statin therapy. - PT / OT evaluations ordered - prior TTE without evidence of PFO 11/03/19. No current symptoms, no indication for repeat TTE. - allow for permissive htn. Patient states she takes metoprolol for PVC, can resume tomorrow but further therapies may be needed. 2. PVCs - continue tele - continue home metoprolol 3. hypothyroidism, continue home levothyroxine. TSH within normal limits. Code: DNR, surrogate is her spouse Dispo: Admitted as inpatient. DVT: low risk I have utilized all available immediate resources to obtain, update, or review the patient's current medications. COVID-19 COVID-19 status: Negative Time Spent With Patient Critical Care time: I spent a total of [] minutes of critical care time on this patient's care today; this time is exclusive of procedural time. Scores NIHSS Level of Conciousness: Alert, keenly responsive Ask month/age: Answers both questions correctly. Open/close eyes, close hand: Performs both tasks correctly Best gaze horizontal: Normal Visual mc: No visual loss Facial palsy: Normal symetrical movement Left arm drift: No drift for full 10 sec Right arm drift: No drift for full 10 sec Left leg drift: No drift for full 5 sec Right leg drift: No drift for full 5 sec Limb ataxia: Absent Sensory on face/arms/legs: Mild to moderate sensory loss, can tell touch Best language: No aphasia, normal Dysarthria: Normal Extinction or inattention: No abnormality Total NIH Stroke scale score: 1 Quality Stroke Contraindication Not Initiating IV-Tpa: Not indicated (low NIHSS, improving symptoms) Onset of Symptoms Date: 02/01/21 Onset of Symptoms Time: 07:30 VTE Deep Vein Thrombosis/Pulmonary Embolism Present on Admission: No MIPS - Admit I confirm the patient?s Advance Care Plan is present, Code status is documented, Surrogate decision maker is in patient?s record [If Yes, STOP here]: Yes
[2021-02-01] MEDS: ATORVASTATIN 20 MG TABLET 80 MG PO (22:42)
[2021-02-02] VITALS (10 sets, daily range): BP systolic 136–147; BP diastolic 70–74; PULSE 65–68; RESP 16–18; TEMP 36.2–36.5; O2SAT 96–99
[2021-02-02] MEDS: LEVOTHYROXINE 50 MCG TABLET PO (05:35)
[2021-02-02 07:31] LABS: Add Manual Diff / Slide Review NO; Basophils Absolute Auto 100 /uL (0-100); Basophils Percent Auto 0.9 % (0-2); Eosinophils Absolute Auto 100 /uL (0-450); Eosinophils Percent Auto 1.7 % (2-4); Hematocrit 42.4 % (36-46); Hemoglobin 14.3 g/dL (12.0-16.0); Lymphocytes Absolute Auto 600 /uL (1100-4500); Lymphocytes Percent Auto 10.9 % (25-40); Mean Corpuscular HGB Conc 33.6 % (30-36); Mean Corpuscular Hemoglobin 31.3 PG (26-34); Mean Corpuscular Volume 93.1 fL (80-100); Monocytes Absolute Auto 600 /uL (0-900); Monocytes Percent Auto 10.7 % (3-14); Neutrophils Absolute Auto 4200 /uL (1500-7000); Neutrophils Percent Auto 75.8 % (50-75); Platelet Count 224 X10^3/uL (150-400); Red Blood Cell Count 4.56 X10^6/uL (4.0-5.2); Red Cell Distribution Width 13.3 % (11.6-14.8); White Blood Cell Count 5.6 X10^3/uL (4.5-11.0)
--- NOTE | 2021-02-02 07:33 | PM.PN.1 ---
Subjective Subjective Date Patient Seen: 02/02/21 Interval history: She is seen in her room here on 02/02/2021. She says that her stomach just does not feel right and so she limits the amount of food she eats. She denies any abdominal pain or nausea. She suspects that is due to anxiety about her new stroke and adjustments she will need to make in her life. She tells me that her lives in her home with her in [place] and is in good health. The left-sided facial and body numbness sensation continues. Her primary care is provided by physician assistant Bernstein in [place]. Exam Vital Signs (past 8 hours): - 02/02/21 01:00 02/02/21 05:00 02/02/21 05:57 Temperature 97.1 F L Pulse Rate 65 Respiratory Rate 16 Blood Pressure 136/74 Pulse Oximetry 96 97 96 Oxygen Delivery Method Room Air Oxygen Flow Rate 0 Narrative Exam Narrative: Alert and oriented x3 Mildly anxious and worried Heart is regular rate and rhythm without murmur Lungs are clear to auscultation bilaterally Extremities have no ankle edema Babinski's are equivocal on the left and downgoing on the right. The left hand strength is 5/5. The left foot and lower extremity strength is 3/5. She is inconsistent on the sensation testing for the left side. Abdomen is soft, bowel sounds positive, nontender, no organomegaly. Objective Labs Result Diagrams: 02/02/21 07:13 02/02/21 07:13 Labs: Laboratory Results - last 24 hr 02/01/21 02/01/21 02/01/21 08:00 08:00 08:00 WBC 4.2 L RBC 3.98 L Hgb 12.4 Hct 36.9 MCV 92.7 MCH 31.3 MCHC 33.7 RDW 13.0 Plt Count 195 Neut % (Auto) 54.5 Lymph % (Auto) 26.3 [place] % (Auto) 15.1 H Eos % (Auto) 3.6 Baso % (Auto) 0.5 Neut # (Auto) 2300 Lymph # (Auto) 1100 [place] # (Auto) 600 Eos # (Auto) 100 Baso # (Auto) 0 PT 12.0 INR 1.1 APTT 28 Sodium 131 L Potassium 3.8 Chloride 98 Carbon Dioxide 28 BUN 18 H Creatinine 0.74 Estimated GFR > 60.0 BUN/Creatinine Ratio 24.3 H Glucose 112 H Calcium 7.9 L Total Bilirubin 0.6 AST 25 ALT 15 Alkaline Phosphatase 52 Total Creatine Kinase 38 CK-MB (CK-2) TNP CK-MB (CK-2) Rel Index TNP Troponin I < 0.012 Total Protein 5.6 L Albumin 3.1 L Globulin 2.5 Albumin/Globulin Ratio 1.2 Lipase 87 TSH Ethyl Alcohol < 10 SARS-CoV-2 (PCR) 02/01/21 02/01/21 08:00 08:20 WBC RBC Hgb Hct MCV MCH MCHC RDW Plt Count Neut % (Auto) Lymph % (Auto) [place] % (Auto) Eos % (Auto) Baso % (Auto) Neut # (Auto) Lymph # (Auto) [place] # (Auto) Eos # (Auto) Baso # (Auto) PT INR APTT Sodium Potassium Chloride Carbon Dioxide BUN Creatinine Estimated GFR BUN/Creatinine Ratio Glucose Calcium Total Bilirubin AST ALT Alkaline Phosphatase Total Creatine Kinase CK-MB (CK-2) CK-MB (CK-2) Rel Index Troponin I Total Protein Albumin Globulin Albumin/Globulin Ratio Lipase TSH 3.35 Ethyl Alcohol SARS-CoV-2 (PCR) Negative [facility] Medical History (Updated 02/01/21 @ 18:38 by Ulises Martinez DO) Hypothyroidism PVC (premature ventricular contraction) Surgical History (Updated 02/01/21 @ 18:37 by Ulises Martinez DO) No pertinent past surgical history Family History (Updated 02/01/21 @ 18:38 by Ulises Martinez DO) Mother CVA (cerebral vascular accident) Grandmother CVA (cerebral vascular accident) Mother No problems noted. Father Alcoholism Social History marital status: household members: spouse lives independently: Yes Smoking Status: Never smoker alcohol intake: never Assessment & Plan Assessment & Plan narrative: This is a 76-year-old female with a past medical history of PVCs and hypothyroidism who presented with acute onset of left-sided numbness starting at 7:30 a.m. this morning. She was admitted for further management of her acute stroke. 1. Acute CVA, present on admission - MRI confirmed R thalamic acute infarct. - given asa and plavix loading dose in the ER. Continue asa and 75 mg plavix for 21 days. Then either asa or plavix for life. - started on statin therapy. - PT / OT evaluations pending today with potential for discharge home or to inpatient rehab depending on their assessments - prior TTE without evidence of PFO 11/03/19. No current symptoms, no indication for repeat TTE. - allow for permissive htn. Patient states she takes metoprolol for PVC, which will be resumed today 2. PVCs - continue tele - continue home metoprolol 3. hypothyroidism, continue home levothyroxine. TSH within normal limits. 4. Anorexia limiting oral intake -unclear etiology. Advise follow-up with primary care PA for consideration of GI referral/EGD. Code: DNR, surrogate is her spouse Time Spent With Patient Critical Care time: I spent a total of [] minutes of critical care time on this patient's care today; this time is exclusive of procedural time. Quality Stroke Contraindication Not Initiating IV-Tpa: Not indicated (low NIHSS, improving symptoms) Onset of Symptoms Date: 02/01/21 Onset of Symptoms Time: 07:30 VTE Deep Vein Thrombosis/Pulmonary Embolism Present on Admission: No
[2021-02-02 07:44] LABS: BUN Creatinine Ratio 22.7 (6-22); Blood Urea Nitrogen 17 mg/dL (7-17); Calcium 8.8 mg/dL (8.4-10.2); Carbon Dioxide 27 mmol/L (22-32); Chloride 102 mmol/L (98-107); Cholesterol 159 mg/dL (140-199); Estimated Glomerular Filt Rate > 60.0 mL/min (>60); Glucose 114 mg/dL (80-110); HDL Cholesterol 39 mg/dL (40-60); HEMOLYSIS < 15 (0-50); LDL Cholesterol Calculated 103 mg/dL (<100); Sodium 136 mmol/L (137-145); Triglycerides 86 mg/dL (35-150)
[2021-02-02 07:47] LABS: Hemoglobin A1C% w Est Avg Glu 5.6 % (4.0-6.0)
--- NOTE | 2021-02-02 08:46 | CM.DANOTE ---
Addendum entered by Elmira Tobar R.N. 02/02/21 12:35: Spoke to Silvia at [facility]. She indicated that they have no beds until Thursday. Joni at [facility] has beds available, but no visitors. Discussed with patient, was going to bring in brochures. , Clay, was at bedside. Patient was already sitting up in her chair. She stated, she did pretty well getting up. Mentioned inpatient rehab, and how visitors aren't allowed at [facility]. Patient wants to go home, she feels that she would sleep better in her bed. is supportive. She is interested in home health therapy, no preferences, she has not had home health before. Updated the therapy team, for they have not yet worked with her. Original Note: Case received, EMR reviewed and met with patient. Introduced self and role. Was able to obtain information regarding patient's baseline activity prior to hospitalization. DCP assessment completed with information currently available. Patient is a 76 year old female who admitted yesterday morning to the care of the hospitalist team. PCP: Dr. Jazmyne Bernstein. Payer: confirmed: Medicare/[employer]. Patient came to the hospital via private vehicle secondary to symptoms of numbness, weakness on her left side. Patient was diagnosed, per MRI, with acute lunar infarct, CVA. Met with patient in her room. She is pleasant, alert and oriented. She is active and independent at her baseline, and walks 2-3 miles a day with her . They both reside in [place]. She is discouraged, because it's hard for her to walk now, and she is normally active. She has not yet worked with P.T. Let patient know that this assortment planner will assist with any resources she may need, such as acute rehab, if this is recommended. Her goal is to get back to her baseline activities. P: DCP to continue to follow. She will work with the therapy team. She may either need skilled rehab, or may benefit with acute inpatient rehab since she is normally active at her baseline. Elmira Tobar RN/Community Specialist Discharge Planning/Care Management CM Discharge Assessment Start: 02/02/21 08:43 Freq: Status: Active Protocol: Document 02/02/21 08:43 (Rec: 02/02/21 08:46 VM [id number]) Discharge Planning Assessment Assigned Cdl Team Truck Driver Elmira Tobar RN/Community Specialist Advance Directives? Yes Advance Directives on File No History Provided By Patient,Medical Record Household Members spouse Type of transporation used prior to Drives own vehicle admit Independent with ADL's Yes Is patient alert and oriented? Yes Caregiver for Another No Barriers to Discharge No Comment Patient may need rehab, possibly could qualify for acute inpatient rehab. Discharge Plan [facility] Facility Transportation Arrangement Facility, or family Referrals Initiated Other Additional Comment Will await PDarya starkey. Patient is weak on her left side, will see how she does and will see recommendations. Whiteboard Updated in Patient Room with Yes name and ext. # of Cdl Team Truck Driver Review Status In Process Next Review Type Continued Stay Review
[2021-02-02] MEDS: ASPIRIN EC 81 MG TABLET PO (10:26)
[2021-02-02] MEDS: METOPROLOL ER 25 MG TABLET PO (10:27)
[2021-02-02] MEDS: CLOPIDOGREL 75 MG TABLET PO (10:27)
--- NOTE | 2021-02-02 12:11 | PC.NURSE ---
Addendum entered by Florence Christine R.N. 02/02/21 16:59: Pt passed PT/OT Left side remains numb Orders received to D/C home HL x 2 D/C'd intact. Home instructions & RX given Pt & escorted to waiting vehicle D/C in stable condition. Original Note: Pt sitting in chair, denies discomfort, Tele shows NSR per ICU staff. SAB to BR w/o incidence. HL x 2 both intact/patent. Pt awaiting PT to clear so she may go home 'Call light w/in reach.
--- NOTE | 2021-02-02 12:40 | OT.IP.EVAL ---
Current Diagnoses Cerebral infarction, unspecified (02/01/21) Past Medical History (Last Updated 02/01/21 @ 18:38 by Ulises Martinez DO) Hypothyroidism No pertinent past surgical history PVC (premature ventricular contraction) Surgical History (Last Updated 02/01/21 @ 18:37 by Ulises Martinez DO) No pertinent past surgical history Occupational Therapy Inpatient Evaluation/Re-Eval M1 PT/OT-IP Prior Functional Status Start: 02/02/21 17:27 Freq: NEEDED Status: Active Protocol: Document 02/02/21 18:00 [facility] (Rec: 02/02/21 18:14 [facility] [id number]) Medical Review Prior Functional Status Medical History Reviewed Yes Communication able to make needs known Mobility and Gait pt stated that she is independent with all mobilities and ambulation without AD . Pt states hikes daily 2-3 miles a day. Activities of Daily Living and IADL's Completely independent with all ADL,IADL, and drives. Social History Household Members spouse Number of Floors (Floors) One Floor Number of Stairs To Enter/Railing? 1 step to enter from the front and one step to the kitchen Home Environment Standard Height Toilet,Tub/ Shower Home Equipment Front Wheel Walker,Straight Cane,Hand Held Shower,Grab Bars In Shower M1 PT/OT-IP Prior Functional Status Start: 02/02/21 18:00 Freq: NEEDED Status: Active Protocol: Document 02/02/21 18:00 [facility] (Rec: 02/02/21 18:14 [facility] [id number]) Medical Review Prior Functional Status Medical History Reviewed Yes Communication able to make needs known Mobility and Gait pt stated that she is independent with all mobilities and ambulation without AD . Pt states hikes daily 2-3 miles a day. Activities of Daily Living and IADL's Completely independent with all ADL,IADL, and drives. Social History Household Members spouse Number of Floors (Floors) One Floor Number of Stairs To Enter/Railing? 1 step to enter from the front and one step to the kitchen Home Environment Standard Height Toilet,Tub/ Shower Home Equipment Front Wheel Walker,Straight Cane,Hand Held Shower,Grab Bars In Shower M2 OT-IP Current Condition Start: 02/02/21 18:00 Freq: Status: Active Protocol: Document 02/02/21 18:00 [facility] (Rec: 02/02/21 18:14 [facility] [id number]) Occupational Therapy Current Condition Current Condition Evaluation Date 02/02/21 Treatment Diagnosis R CVA Diagnosis Onset Date 02/01/21 M3 OT- IP Subjective and Pain Start: 02/02/21 18:00 Freq: Status: Active Protocol: Document 02/02/21 18:00 [facility] (Rec: 02/02/21 18:14 [facility] [id number]) OT- Subjective Occupational Therapy Visit Type Type Initial Evaluation Visit Start Time 12:39 Visit Stop Time 13:17 Total Visit Minutes 38 Occupational Therapy Visit Comments Patient Comments Pt agreed to get up for Ot eval. Pt's in the room . Patient/Caregiver Goals Pt insistent on going home. OT Pain Assessment Pain When Pain Assessed At Rest Pain Present Pain Present Denied Pain M4 OT- IP ADL's Start: 02/02/21 18:00 Freq: Status: Active Protocol: Document 02/02/21 18:00 [facility] (Rec: 02/02/21 18:14 [facility] [id number]) OT [id number] Comments OT Self-Feeding Comments Not at meal time. OT ADL-Grooming General Evaluation Grooming Ability Standby Assistance Areas Needing Assistance Retrieving/Set-up of Grooming Items OT ADL-Oral Care General Eval Oral Care Ability Independent OT ADL-Dressing General Eval Lower Body Dressing Ability Standby Assistance Comments OT Dressing Comments SBA , pt able to sit down for LB dressing needs. OT ADL-Toileting Comments OT Toileting Comments Pt did not have to go. OT ADL-Bathing Comments OT Bathing Comments NOt performed. Educated best to use a shower chair for showering at this time due to decreased balance. M5 OT- IP IADL's Start: 02/02/21 18:00 Freq: Status: Active Protocol: Document 02/02/21 18:00 [facility] (Rec: 02/02/21 18:14 [facility] [id number]) OT-Instrumental Activities of Daily Living Deficits IADL Deficits Identified Deficits Home Safety Awareness Awareness of Need for Assistance at Home Good Awareness Ability to Problem Solve Emergency Able to Problem Solve Situations Home Safety Comments Pt has a very supportive that will assist for all her needs. M6 OT- IP Functional Cognition Start: 02/02/21 18:00 Freq: Status: Active Protocol: Document 02/02/21 18:00 [facility] (Rec: 02/02/21 18:14 [facility] [id number]) Cognitive Factors Limiting Selfcare Function Cognitive Ability Level of Alertness Alert Patient Orientation Name,Age,Birthday,Month,Date, Year,Day of Week,Place, Situation Attention Span Ability Capable of Focused Attention, Capable of Sustained Attention Ability to Follow Commands Able to Follow Multi-Step Commands Memory Description No Deficits Noted Problem Solving Ability No deficits Noted Executive Function Ability No Deficits Noted Cognitive Tests SLUMS Pt scored 30/30 which implies normal for cognitive needs. Cognitive Comments Cognitive Assessment Comments Pt scored 61 seconds on [place] Making Part B which implies normal for visual attention, task switching, speed of processing, mental flexibility , and executive functioning. Pt states however will not be driving anytime soon. OT- Vision and Hearing OT- Hearing Assessment OT- Hearing Assessment WFL OT- Vision Assessment Visual Acuity Glasses For Reading Visual Attentiveness WFL Occular Pursuits WFL Visual Convergence WFL Visual [place] WFL Diplopia Absent M7 OT- IP Mobility and Balance Start: 02/02/21 18:00 Freq: Status: Active Protocol: Document 02/02/21 18:00 [facility] (Rec: 02/02/21 18:14 [facility] [id number]) OT-Transfer Assessment Sit to and From Stand Sit to and from Stand Standby Assistance Transfers Transfer Ability Contact Guard Assistance Technique Transfer Destination Bed Transfer Technique Stand Step Pivot Devices Transfer Assistive Devices Gait Belt,Front Wheeled Walker Comments Mobility Comments Able to show pt's how to joe/doff the gait belt. OT- Gait Assessment Comments Gait Ability Comments CGA with FWW. OT- Balance Assessment Sitting Balance and Reactions Static Sitting Balance Ability Normal Dynamic Sitting Balance Ability Good Standing Balance and Reactions Static Standing Balance Ability Fair Dynamic Standing Balance Ability Poor M8 OT- IP Objective Assessments Start: 02/02/21 18:00 Freq: Status: Active Protocol: Document 02/02/21 18:00 [facility] (Rec: 02/02/21 18:14 [facility] [id number]) OT Gross Range of Motion Upper Extremity Range of Motion Assessment Within Functional Limits OT Strength Comments Strength Comments BUE RUE 4/5 and LUE 4-/5 OT- Coordination Assessment Upper Extremity Finger to Nose Test Left UE Impaired Comments Coordination Comments Right hand 21 seconds and left hand 47 seconds. Able to show pt ways to do hand exercises at home and how to pick items up from thumb to finger and finger to thumb. OT-Muscle Tone Assessment Muscle Tone WNL Yes OT Sensation Assessment Location Left Arm Light Touch Impaired Proprioception (Position) Impaired Comments Summary Comments Pt decreased proprioception and kinesthesia for LUE. Educated pt to be mindful and look to see what her left of of her body is doing at all times. M9 OT- IP Assessment and Plan Start: 02/02/21 18:00 Freq: Status: Active Protocol: Document 02/02/21 18:00 [facility] (Rec: 02/02/21 18:14 [facility] [id number]) OT Summary Assessment and Plan Potential Rehabilitation Potential Excellent Analytic Complexity at Evaluation Moderate Summary OT Impairments Strength,Balance,Coordination, Functional Mobility,Dressing, Toileting,Bathing,Toilet Transfers,Shower Transfers, Activity Tolerance Progress Towards Goals Progressing Toward Goals Assessment Summary Pt s/p R CVA and wanting to go home versus inpt rehab. Pt has a supportive to assist with her needs and therefore since refusing inpt acute rehab would benefit from home health. Goals Grooming Goal Independent Dressing Goal Independent Toileting Goal Independent Bathing Goal Independent Toilet Transfer Goal Independent Shower Transfer Goal Independent Patient/Caregiver Education Goal Caregiver Independent Assisting Patient Days to Meet Goals 15 Frequency of Treatment Frequency Of Treatment Once a Day Treatment Plan OT Treatment Plan ADL Training,Functional Mobility,Patient/Family Education,Discharge Planning Discharge Recommendations OT Discharge Recommendations Home with Assistance,Home Health,Acute Rehab Home Equipment Needs FWW, shower chair Transportation Needs at Discharge Private Vehicle
--- NOTE | 2021-02-02 15:20 | PT.IIE ---
Current Diagnoses Cerebral infarction, unspecified (02/01/21) Medical History (Last Updated 02/01/21 @ 18:38 by Ulises Martinez DO) Hypothyroidism PVC (premature ventricular contraction) Physical Therapy Inpatient Evaluation/Re-Eval M1 PT/OT-IP Prior Functional Status Start: 02/02/21 17:27 Freq: NEEDED Status: Active Protocol: Document 02/02/21 15:20 AB (Rec: 02/02/21 17:49 AB [id number]) Medical Review Prior Functional Status Medical History Reviewed Yes Communication able to make needs known Mobility and Gait pt stated that she is independent with all mobilities and ambulation without AD Social History Household Members spouse Number of Floors (Floors) One Floor Number of Stairs To Enter/Railing? 1 step to enter from the front and one step to the kitchen Home Environment Standard Height Toilet,Tub/ Shower Home Equipment Front Wheel Walker,Straight Cane,Hand Held Shower,Grab Bars In Shower M2 PT-IP Current Condition Start: 02/02/21 17:27 Freq: NEEDED Status: Active Protocol: Document 02/02/21 15:20 AB (Rec: 02/02/21 17:49 AB [id number]) Physical Therapy Current Condition Current Condition Evaluation Date 02/02/21 Treatment Diagnosis R CVA; difficulty in walking Onset Date 02/01/21 M3 PT-IP Subjective Start: 02/02/21 17:27 Freq: NEEDED Status: Active Protocol: Document 02/02/21 15:20 AB (Rec: 02/02/21 17:49 AB [id number]) Subjective Physical Therapy Visit Type Type Initial Evaluation Visit Start Time 15:20 Visit Stop Time 16:21 Total Visit Minutes 61 Number of SOLE STAINER Visits 0 Physical Therapy Visit Comments Patient Comments agreeable to do PT Therapy Pain Assessment Pain Present Pain Present Denied Pain M4 PT-IP Mobility and Gait Start: 02/02/21 17:27 Freq: NEEDED Status: Active Protocol: Document 02/02/21 15:20 AB (Rec: 02/02/21 17:49 AB [id number]) PT-Bed Mobility Assessment Supine to Sit Supine to Sit Standby Assistance Sit to Supine Sit to Supine Standby Assistance PT-Transfer Assessment Sit to and From Stand Sit to and from Stand Contact Guard Assistance,1 Person Assistance,Use of Upper Extremities Equipment Transfer Assistive Device Gait Belt,Front Wheeled Walker Orthotic/Prosthetic Devices or Brace: No Transfers Transfer Destination Chair Transfer Technique ambulated Transfer Ability Level of Assist Minimal Assistance,1 Person Assistance,Use of Upper Extremities Comments Mobility Comments pt completed supine to sit SBA . able to sit on EOB SBA. completed sit to stand CGA and cues. ambulated in room using FWW min A and cues. pt is impulsive. presents with increase LLE crossing over R with foot inversion and with decrease heel strike during early stance. pt has decrease sensation on L foot. pt with decrease LLE proprioception and during turning L foot was left on the foot and inverted and with LOB requiring PT to assist and pt is not aware of what happened to LLE and required PT to cue and correct LLE position. pt walk to the chair. educated pt and spouse regarding safety: slowing down, taking shorter steps, increase BELKIS, do heel strike during early stance. educated spouse on how to assist pt. caregiver training conducted. spouse was able to put safety belt on. initially requiring cues and assistance but able to re demonstrate after training. spouse assisted pt with sit to stand and ambulation in room. spouse was able to safely assist pt and cue properly. pt sat back on chair. educated pt and spouse regarding stair climbing using FWW. spouse assisted pt out in the hallway and completed up/down platform step using fWW x 2 sets and completed safely. pt ambulated back to the room with spouse assisting . pt and spouse educated on compensation strategies at this time for safety and is aware of HHPT recommendation at this time. positioned pt on chair. call light and table placed within reach. nurse is aware of pt's mobility and HHPT recommendation and nurse informed pt that employment case manager referred pt for HH already. Gait Assessment Gait Gait Assistance Required: Minimum Assistance Distance (Feet) 30 Able to Maintain Weight Bearing Status Yes During Gait Assistive Devices Assistive Device Gait Belt,Front Wheeled Walker Orthotic/Prosthetic Devices or Brace: No Gait Deviations General Gait Pattern Decreased Stride Length Factors Limiting Gait Function Factors Limiting Gait Function Decreased Activity Tolerance, Decreased Strength,Poor Balance,Poor Safety Awareness Stair Climbing Assessment Evaluation Level of Assist On Stairs Minimal Assistance Devices Stair Climbing Assistive Devices Front Wheel Walker Technique/Endurance Stair Climbing Direction Ascend and Descend Stair Climbing Technique Step to Step Number of Steps Climbed 1 Query Text: Stair Climbing Set # Repetitions (reps) 2 PT-Balance Assessment Sitting Balance and Reactions Static Sitting Balance Ability Good Dynamic Sitting Balance Ability Good Standing Balance and Reactions Static Standing Balance Ability Fair Dynamic Standing Balance Ability Poor Device Used FWW M5 PT-IP Objective Assessments Start: 02/02/21 17:27 Freq: NEEDED Status: Active Protocol: Document 02/02/21 15:20 AB (Rec: 02/02/21 17:49 AB [id number]) Orientation Orientation/Cognition Level of Alertness Alert Orientation Name Language Function Ability No Deficits Noted Memory Description No Deficits Noted Gross Range of Motion Lower Extremity ROM Assessment Within Functional Limits Strength Lower Extremity Strength Assessment Within Functional Limits Sensation Assessment Sensation Light Touch Impaired Proprioception (Position) Impaired Sensation Description Numbness,Tingling Comments Sensation Comments pt has decrease LLE sensation: stated ~ 50% on upper thigh and lower leg but only ~ 40% on upper foot and less on bottom of the foot pt also has decrease priopricetion on LLE and is unable to position in space affecting ambulation. Muscle Tone Muscle Tone WNL Yes M6 PT-IP Treatment Start: 02/02/21 17:27 Freq: NEEDED Status: Active Protocol: Document 02/02/21 15:20 AB (Rec: 02/02/21 17:49 AB [id number]) Physical Therapy Treatment Education Education Provided Precautions,Safety M7 PT-IP Assessment and Plan Start: 02/02/21 17:27 Freq: NEEDED Status: Active Protocol: Document 02/02/21 15:20 AB (Rec: 02/02/21 17:49 AB [id number]) PT Summary Assessment and Plan Potential Rehabilitation Potential Good Status of Condition at Evaluation Evolving Summary Impairments Pain,ROM,Strength,Balance, Coordination,Sensation, Cognition,Bed Mobility, Transfers,Gait,Activity Tolerance Assessment Summary Pt with R thalamic infarction presenting with L sided numbness and with decrease ambulation requiring min A and cues due to LLE numbness affecting balance. pt also has decrease proprioception of LLE. Pt and spouse educated on safety and strategies for mobility safety. Pt refuse to go to acute rehab but agreed to HHPT. caregiver training was completed and spouse was able to safely assist pt with mobility using FWW. Goals Bed Mobility Goal Independent Transfer Goal Independent,Front Wheeled Walker Gait Goal Independent,Front Wheel Walker Gait Distance 150 Other Goals up/down 1 step using FWW mod I Days to Meet Goals 5 Frequency of Treatment Frequency Of Treatment Once a Day Treatment Plan Physical Therapy Treatment Plan Bed Mobility Training,Transfer Training,Gait Training, Therapeutic Exercise,Balance Retraining,Discharge Planning, Hot or Cold Pack,Neuromuscular Re-ed,Coordination Retraining ,Manual Therapy Precautions Other Precautions falls Recommendations To Nursing Amount of Assist Needed 1 Person Assist Discharge Recommendations PT Discharge Recommendations Home with 20/10 Assist Available,Home Health Transportation Needs at Discharge Private Vehicle
--- NOTE | 2021-02-02 16:18 | P.HP_ITS ---
History of Present Illness History of Present Illness Date Patient Seen: 02/02/21 Time Patient Seen: 16:18 Chief complaint: numb on left side Patient History Medical History (Updated 02/01/21 @ 18:38 by Ulises Martinez DO) Hypothyroidism PVC (premature ventricular contraction) Surgical History (Updated 02/01/21 @ 18:37 by Ulises Martinez DO) No pertinent past surgical history Family & Social History Family History (Updated 02/01/21 @ 18:38 by Ulises Martinez DO) Mother CVA (cerebral vascular accident) Grandmother CVA (cerebral vascular accident) Mother No problems noted. Father Alcoholism Social History: household members spouse lives independently Yes Safety & Behavioral: Feels Safe in Current Yes Environment Been Physically Hurt or No Threatened By a Person Suicidal Ideation Description None Suicide Plan Description No Plan Tobacco & Substance use: Smoking Status Never smoker alcohol intake never alcohol intake frequency 0-2 drinks per day Substance Use Type does not use Meds Home Medications and Allergies Home Medications Medication Instructions Recorded Confirmed Type levothyroxine 50 mcg tablet 50 mcg PO QAM 02/01/21 02/01/21 History (Synthroid) metoprolol succinate 25 mg 25 mg PO QAM 02/01/21 02/01/21 History tablet,extended release 24 hr aspirin 81 mg tablet,delayed 81 mg PO DAILY #30 tab 02/02/21 Rx release atorvastatin 20 mg tablet (Lipitor) 80 mg PO BEDTIME #120 tab 02/02/21 Rx clopidogrel 75 mg tablet 75 mg PO DAILY #21 tab 02/02/21 Rx Allergies Allergy/AdvReac Type Severity Reaction Status Date / Time codeine Allergy Mild Hives Verified 02/01/21 16:26 Exam Vital Signs (past 8 hours): - 02/02/21 09:00 02/02/21 10:27 02/02/21 11:59 Temperature Pulse Rate Respiratory Rate Blood Pressure 147/73 H 147/73 H Pulse Oximetry 97 02/02/21 12:00 02/02/21 13:00 Temperature 97.7 F Pulse Rate 68 Respiratory Rate 16 Blood Pressure 136/70 Pulse Oximetry 99 96 Oxygen Delivery Method Room Air Oxygen Flow Rate 0 Objective Labs Result Diagrams: 02/02/21 07:13 02/02/21 07:13 Labs: Laboratory Results - last 24 hr 02/02/21 02/02/21 02/02/21 07:13 07:13 07:13 WBC 5.6 RBC 4.56 Hgb 14.3 Hct 42.4 MCV 93.1 MCH 31.3 MCHC 33.6 RDW 13.3 Plt Count 224 Neut % (Auto) 75.8 H D Lymph % (Auto) 10.9 L [place] % (Auto) 10.7 Eos % (Auto) 1.7 L Baso % (Auto) 0.9 Neut # (Auto) 4200 Lymph # (Auto) 600 L [place] # (Auto) 600 Eos # (Auto) 100 Baso # (Auto) 100 Sodium 136 L Potassium 4.0 Chloride 102 Carbon Dioxide 27 BUN 17 Creatinine 0.75 Estimated GFR > 60.0 BUN/Creatinine Ratio 22.7 H Glucose 114 H Hemoglobin A1c 5.6 Calcium 8.8 Triglycerides 86 Cholesterol 159 LDL Cholesterol, Calc 103 H HDL Cholesterol 39 L Assessment & Plan Time Spent With Patient Critical Care time: I spent a total of [] minutes of critical care time on this patient's care today; this time is exclusive of procedural time. Quality Stroke Contraindication Not Initiating IV-Tpa: Not indicated (low NIHSS, improving symptoms) Onset of Symptoms Date: 02/01/21 Onset of Symptoms Time: 07:30 VTE Deep Vein Thrombosis/Pulmonary Embolism Present on Admission: No
--- NOTE | 2021-02-02 16:29 | PM.DS.1 ---
History of Present Illness History of Present Illness Chief complaint: numb on left side Narrative: This is a 76-year-old female with a past medical history of PVCs and hypothyroidism who presented with acute onset of left-sided numbness starting at 7:30 a.m. this morning. The patient 1st noticed some tingling and numbness in her left foot, shortly after she noticed that her left hand and arm was also numb, followed by her face. At that point she came to the emergency room. She had no weakness, slurred speech, headache, vision changes. She had some difficulty ambulating due to her decreased sensation. She denies any recent fevers, chills, chest pain, shortness of breath, lower extremity edema, nausea, vomiting, dysuria, or urinary frequency. In the emergency room, the patient was hypertensive, but the remainder of her vital signs are unremarkable. Initial laboratory evaluation showed a mild hyponatremia with sodium of 131, but the remainder of her laboratory evaluation was unremarkable. COVID-[address] angiogram of her head and neck were unremarkable. MRI showed an acute infarct in her right thalamus. Patient was given aspirin, as well as a loading dose of Plavix. She was admitted for further management her acute strok Discharge Providers Provider Date of admission: 02/01/21 11:32 Discharge Date: 02/02/21 Primary care physician: Jazmyne Bernstein PA-C Consults: 02/02/21 10:50 Consult to Occupational Therapy Evaluate & Treat Comment: Physician Instructions: Evaluate and treat Consult to Physical Therapy Evaluate & Treat Comment: Physician Instructions: Evaluate and Treat Discharge provider: Denita Angelo MD Summary Hospital Course Discharge Diagnosis: See below Hospital Course: 1. Acute CVA, present on admission - MRI confirmed R thalamic acute infarct. CTA head and neck confirms no significant carotid disease. - given asa and plavix loading dose in the ER. Continue asa and 75 mg plavix for 21 days. Then either asa or plavix for life. - started on high-dose atorvastatin - PT / OT evaluations today with recommendation for inpatient rehab which the patient declined, instead returning home with her 's assistance and a plan for home health PT/OT. - prior TTE without evidence of PFO 11/03/19. No current symptoms, no indication for repeat TTE. - Resume Metoprolol 2. PVCs - continue home metoprolol 3. hypothyroidism, continue home levothyroxine. TSH within normal limits. 4. Anorexia limiting oral intake -unclear etiology. Advise follow-up with primary care PA for consideration of GI referral/EGD. Status at Discharge Cognitive/behavioral status at discharge: at baseline, oriented Functional status at discharge: uses cane/walker Overall status at discharge: patient is not back to baseline Time Spent with Patient Time spent: Greater than 30 minutes Exam Vital Signs (past 8 hours): - 02/02/21 09:00 02/02/21 10:27 02/02/21 11:59 Temperature Pulse Rate Respiratory Rate Blood Pressure 147/73 H 147/73 H Pulse Oximetry 97 02/02/21 12:00 02/02/21 13:00 Temperature 97.7 F Pulse Rate 68 Respiratory Rate 16 Blood Pressure 136/70 Pulse Oximetry 99 96 Oxygen Delivery Method Room Air Oxygen Flow Rate 0 Narrative Exam Narrative: Alert and oriented x3 Mildly anxious and worried Heart is regular rate and rhythm without murmur Lungs are clear to auscultation bilaterally Extremities have no ankle edema Babinski's are equivocal on the left and downgoing on the right. The left hand strength is 5/5. The left foot and lower extremity strength is 3/5. She is inconsistent on the sensation testing for the left side. Abdomen is soft, bowel sounds positive, nontender, no organomegaly. Objective Labs Result Diagrams: 02/02/21 07:13 02/02/21 07:13 Labs: Laboratory Results - last 24 hr 02/02/21 02/02/21 02/02/21 07:13 07:13 07:13 WBC 5.6 RBC 4.56 Hgb 14.3 Hct 42.4 MCV 93.1 MCH 31.3 MCHC 33.6 RDW 13.3 Plt Count 224 Neut % (Auto) 75.8 H D Lymph % (Auto) 10.9 L [place] % (Auto) 10.7 Eos % (Auto) 1.7 L Baso % (Auto) 0.9 Neut # (Auto) 4200 Lymph # (Auto) 600 L [place] # (Auto) 600 Eos # (Auto) 100 Baso # (Auto) 100 Sodium 136 L Potassium 4.0 Chloride 102 Carbon Dioxide 27 BUN 17 Creatinine 0.75 Estimated GFR > 60.0 BUN/Creatinine Ratio 22.7 H Glucose 114 H Hemoglobin A1c 5.6 Calcium 8.8 Triglycerides 86 Cholesterol 159 LDL Cholesterol, Calc 103 H HDL Cholesterol 39 L PFSH Medical History (Updated 02/01/21 @ 18:38 by Ulises Martinez DO) Hypothyroidism PVC (premature ventricular contraction) Surgical History (Updated 02/01/21 @ 18:37 by Ulises Martinez DO) No pertinent past surgical history Family History (Updated 02/01/21 @ 18:38 by Ulises Martinez DO) Mother CVA (cerebral vascular accident) Grandmother CVA (cerebral vascular accident) Mother No problems noted. Father Alcoholism Social History marital status: household members: spouse lives independently: Yes Smoking Status: Never smoker alcohol intake: never Discharge Assessment & Plan Assessment and Plan Assessment: See the notes above. Discharge Plan Discharge Plan Patient Disposition: Home Provider Discharge Comment: Home Health referral for PT and OT. Discharge orders & Medications Prescriptions: New atorvastatin [Lipitor] 20 mg Tablet 80 mg PO BEDTIME Qty: 120 RF: 0 clopidogrel 75 mg Tablet 75 mg PO DAILY Qty: 21 RF: 0 aspirin 81 mg Tablet,Delayed Release (Dr/Ec) 81 mg PO DAILY Qty: 30 RF: 0 Continued metoprolol succinate 25 mg tablet extended release 24 hr 25 mg PO QAM RF: 0 levothyroxine [Synthroid] 50 mcg Tablet 50 mcg PO QAM RF: 0 Follow up/Referrals: Jazmyne Bernstein PA-C [Primary Care Provider] - Diet/Activity/Treatments Diet: Low-cholesterol Visit Report/Discharge Packet Instructions: Ischemic Stroke, Right Brain Stroke Discharge Data Primary Care Provider: Jazmyne Bernstein Quality Stroke Contraindication Not Initiating IV-Tpa: Not indicated (low NIHSS, improving symptoms) Onset of Symptoms Date: 02/01/21 Onset of Symptoms Time: 07:30 VTE Deep Vein Thrombosis/Pulmonary Embolism Present on Admission: No
== END 2021-02-02 17:03 | disposition home or self-care (01) | DRG 66 ==
LOC: ED 11:27 → AC 11:34
PROVIDERS: Admitting Provider Internal Medicine; Emergency Provider Emergency Medicine; Family Provider Physician Assistant Medical; PCP Physician Assistant Medical; Referring Provider Emergency Medicine; Visit Provider Internal Medicine
DX: I63.9 Cerebral infarction, unspecified (principal); R20.0 Anesthesia of skin; I49.3 Ventricular premature depolarization; E03.9 Hypothyroidism, unspecified; R29.701 NIHSS score 1; Z66 Do not resuscitate; Z20.822 Contact with and (suspected) exposure to COVID-19
CPT/HCPCS: 36415; 70450; 70496; 70498; 70551; 80048; 80053; 80061; 80320; 81003; 82550; 82962; 83036; 83690; 84443; 84484; 85025; 85610; 85730; 87635; 93005; 93010; 96360; 96361; 97116; 97162; 97166; 97530; 99285; 99291; C9803

== ENCOUNTER → 2021-07-15 13:48 | Outpatient (CLI) | payer MEDICARE, OTHER, SELFPAY ==
[2021-02-01 16:11] VITALS: BMI 18.8
--- NOTE | 2021-07-15 | DI.ECHO.S_ITS ---
[facility]---------+ [facility] +---------+ : : [address] [place] : : : : [id number] : : : : Phone: [phone]+ Echocardiogram Report + + :Name: JERONIMO FLETCHER Study Date: 07/15/2021 Height: 62 in : :[facility] ReadingLocation: Weight: 100 lb : : Gender: Female BSA: 1.4 m2 : :: 1945 Age: 76 yrs BP: 168/88 mmHg: :Reason For Study: CEREBRAL INFARCTION : :Ordering Physician: ALMAZ, : :PREM Performed By: Mela Hilario : :Referring: CHEYENNE RIVERS : + + Interpretation Summary The patient was in sinus rhythm with heart rates between 60-86 bpm during the exam. The left ventricle is normal in size and wall thickness. There is no LV thrombus. Left ventricular systolic function is normal. The ejection fraction is estimated to be 60-65%. Previous LV ejection fraction 65 to 70%. The right ventricle is normal in size and function. There is mild mitral regurgitation. Compared to the prior echo study, there has been no change in the severity of mitral regurgitation. There is moderate tricuspid regurgitation. Compared to the prior echo exam, there has been no change in TR severity. The right ventricular systolic pressure is estimated to be at least 27 mmHg based on an estimated right atrial pressure of 3 mm Hg. Previously it was 32 mmHg. There is aortic root sclerosis/calcification. Mild atherosclerotic plaque(s) in the aortic arch. No significant change from the previous study. Procedure: A two-dimensional transthoracic echocardiogram with color flow and Doppler was performed. The study quality was technically adequate. Comparison is made with the echocardiogram of 11/03/2019. The patient was in sinus rhythm with heart rates between 60-86 bpm during the exam. Left Ventricle: The left ventricle is normal in size and wall thickness. There is no thrombus. The ejection fraction is estimated to be 60-65%. Left ventricular systolic function is normal. There are no focal wall motion abnormalities. Diastolic parameters suggest a relaxation abnormality of the left ventricle, consistent with probable normal filling pressures. Right Ventricle: The right ventricle is normal in size and function. Atria: The left atrial size is normal. Both atria have remained unchanged in size since the prior echo exam. Right atrial size is normal. There is no Doppler evidence for an interatrial shunt. Mitral Valve: There is mild to moderate mitral annular calcification. The mitral valve chordae are thickened and/or calcified. There is mild mitral regurgitation. Compared to the prior echo study, there has been no change in the severity of mitral regurgitation. Aortic Valve: The aortic valve is trileaflet. The aortic valve opens well. There is mild aortic valve sclerosis. There is no aortic valve stenosis. No aortic regurgitation is present. Tricuspid Valve: The tricuspid valve leaflets are thickened and/or calcified, but open well. There is moderate tricuspid regurgitation. The right ventricular systolic pressure is estimated to be at least 27 mmHg based on an estimated right atrial pressure of 3 mm Hg. Compared to the prior echo exam, there has been no change in TR severity. Pulmonic Valve: The pulmonic valve leaflets are thin and pliable; valve motion is normal. There is mild to moderate pulmonic regurgitation. This is unchanged compared to the previous study. Great Vessels: The aortic root is normal size. There is aortic root sclerosis/calcification. The ascending aorta could not be visualized. Mild atherosclerotic plaque(s) in the aortic arch. The IVC is of normal diameter and collapses greater than 50% with a sniff. This suggests a low right atrial pressure of 3 mm Hg. Pericardium/ Pleura There is no pericardial effusion. There is no pleural effusion. MMode/2D Measurements & Calculations LVIDd: 3.4 cm LVOT diam: 1.9 cm LVIDs: 2.3 cm Ao root diam: 3.3 cm FS: 33.5 % Ao Arch Diam (Prox Trans): 2.4 cm IVSd: 0.67 cm LVPWd: 0.64 cm LV hawley. diameter/BSA (cm/m^2): 2.4 LV sys. diameter/BSA (cm/m^2): 1.6 LA A2 area: 16.2 cm2 RA long axis: 4.2 cm LA A4 area: 9.9 cm2 RA area: 10.2 cm2 LA length (vol): 4.1 cm RA vol: 21.3 ml LA vol: 33.4 ml RA : 15.0 ml/m2 LA vol index: 23.5 ml/m2 IVC diam: 1.0 cm RVD1 (basal): 2.9 cm RVD2 (mid): 2.9 cm TAPSE: 1.7 cm Doppler Measurements & Calculations Ao V2 max: 110.9 cm/sec LVOT Max Minor: 89.6 cm/sec Ao V2 mean: 79.8 cm/sec LV V1 max P.2 mmHg Ao max P.9 mmHg LV V1 VTI: 21.4 cm Ao mean P.8 mmHg EFIFE(I,D): 2.2 cm2 Ao V2 VTI: 27.0 cm EFFIE(V,D): 2.2 cm2 sev ratio: 0.79 EFFIE indexed to BSA (cm^2/m^2): 1.5 MV E max minor: 71.1 cm/sec TR max minor: 244.7 cm/sec MV A max minor: 101.1 cm/sec TR max P.0 mmHg MV E/A: 0.70 PA V2 max: 105.8 cm/sec Med Peak E' Minor: 8.0 cm/sec PA V2 mean: 71.4 cm/sec E/E' med: 8.8 PA mean P.3 mmHg Lat Peak E' Minor: 9.8 cm/sec PA pr(Accel): 31.0 mmHg E/E' lat: 7.2 E/e' average: 8.0 MV dec time: 0.24 sec SV(LVOT): 58.6 ml Reading Physician:12:51 PM
--- NOTE | 2021-07-15 13:50 | DI.US.S_ITS ---
PROCEDURE: US CAROTID DOPPLER BI INDICATIONS: CVA TECHNIQUE: Color and pulse Doppler interrogation was performed of both carotid systems, with image documentation and velocity measurements. COMPARISON: [facility], MR, MR HEAD/BRAIN WO CON, 02/01/2021, 10:48. [facility], CT, CT ANGIO HEAD AND NECK, 02/01/2021, 7:56. FINDINGS: Stenosis calculations are based on SRU (Society of Radiologists in Ultrasound) criteria. The flow velocities and the arterial waveforms are normal within both carotid arterial systems. Atherosclerotic plaque is seen on both sides. The estimated degree of internal carotid artery stenosis is less than 50%. Antegrade flow is confirmed within both vertebral arteries. IMPRESSION: No hemodynamically significant stenosis is seen. Atherosclerotic plaque is noted bilaterally. Dictated by: Wilmer Mcgovern M.D. on 07/15/2021 at 14:00 Approved by: Wilmer Mcgovern M.D. on 07/15/2021 at 14:00
== END ==
PROVIDERS: Family Provider Physician Assistant Medical; PCP Physician Assistant Medical; Referring Provider Internal Medicine Cardiovascular Disease; Visit Provider Internal Medicine Cardiovascular Disease
DX: I63.9 Cerebral infarction, unspecified (principal); I08.3 Combined rheumatic disorders of mitral, aortic and tricuspid valves; I70.0 Atherosclerosis of aorta
CPT/HCPCS: 93306; 93880

== ENCOUNTER → 2021-09-18 09:08 | Outpatient (CLI) | payer MEDICARE, OTHER, SELFPAY ==
[2021-02-01 16:11] VITALS: BMI 18.8
--- NOTE | 2021-09-18 | DI.MG.S_ITS ---
BILATERAL DIGITAL SCREENING MAMMOGRAM 3D/2D WITH CAD: 09/18/2021 CLINICAL: Routine screening. Comparison is made to exams dated: 11/17/2019 mammogram, 08/17/2017 mammogram, and 02/13/2017 mammogram - [facility]. The tissue of both breasts is heterogeneously dense. This may lower the sensitivity of mammography. Current study was also evaluated with a Computer Aided Detection (CAD) system. No significant masses, calcifications, or other findings are seen in either breast. There has been no significant interval change. IMPRESSION: NEGATIVE There is no mammographic evidence of malignancy. A 1 year screening mammogram is recommended. This exam was interpreted at Station ID: [id number]. NOTE: For mammograms, a report in lay terms will be sent to the patient. Approximately 15% of breast malignancies will not be visualized mammographically. In the management of a palpable breast mass, a negative mammogram must not discourage biopsy of a clinically suspicious lesion. Electronically Signed By: Quentin mcnulty/shila:09/18/2021 09:37:13 letter sent: Normal Exam ACR BI-RADS Category 1: Negative [id number]
== END ==
PROVIDERS: Family Provider Physician Assistant Medical; PCP Physician Assistant Medical; Referring Provider Physician Assistant Medical; Visit Provider Physician Assistant Medical
DX: Z12.31 Encounter for screening mammogram for malignant neoplasm of breast (principal)
CPT/HCPCS: 77063; 77067

== ENCOUNTER → 2023-02-18 07:38 | Outpatient (CLI) | payer MEDICARE, OTHER, SELFPAY ==
[2021-02-01 16:11] VITALS: BMI 18.8
--- NOTE | 2023-02-18 | DI.MG.S_ITS ---
BILATERAL DIGITAL SCREENING MAMMOGRAM 3D/2D WITH CAD: 02/18/2023 CLINICAL: Routine screening. Comparison is made to exams dated: 09/18/2021 mammogram - [facility], 11/17/2019 mammogram, 08/17/2017 mammogram, and 02/13/2017 mammogram - [facility]. Both breasts are heterogeneously dense, which may obscure small masses (category c / 51-75% glandular tissue). Current study was also evaluated with a Computer Aided Detection (CAD) system. No significant masses, calcifications, or other findings are seen in either breast. There has been no significant interval change. IMPRESSION: NEGATIVE There is no mammographic evidence of malignancy. A 1 year screening mammogram is recommended. Based on the Tyrer Cuzick model (a risk assessment model) the patient's lifetime risk is 3.3% and her 10 year risk is 0.0%. According to the ACR, ACS, and NCCN guidelines, an annual breast MRI exam along with mammogram is recommended if the patient's lifetime risk is 20% or greater. This exam was interpreted at Station ID: [id number]. NOTE: For mammograms, a report in lay terms will be sent to the patient. Approximately 15% of breast malignancies will not be visualized mammographically. In the management of a palpable breast mass, a negative mammogram must not discourage biopsy of a clinically suspicious lesion. Electronically Signed By: Ant alexander/shila:02/18/2023 09:12:48 letter sent: Normal Exam ACR BI-RADS Category 1: Negative [id number]
== END ==
PROVIDERS: Family Provider Physician Assistant Medical; PCP Physician Assistant Medical; Referring Provider Physician Assistant Medical; Visit Provider Physician Assistant Medical
DX: Z12.31 Encounter for screening mammogram for malignant neoplasm of breast (principal)
CPT/HCPCS: 77063; 77067

== ENCOUNTER → 2023-05-28 07:40 | Outpatient (CLI) | payer MEDICARE, OTHER, SELFPAY ==
[2021-02-01 16:11] VITALS: BMI 18.8
--- NOTE | 2023-05-28 07:42 | DI.ECHO.S_ITS ---
[facility]---------+ [facility] +---------+ : : [address] : : : : [id number] : : : : Phone: [phone]+ Echocardiogram Report + + :Name: JERONIMO FLETCHER Study Date: 05/28/2023 Height: 62 in : :[facility] ReadingLocation: Weight: 102 lb : : Gender: Female BSA: 1.4 m2 : :: 1945 Age: 78 yrs BP: 154/78 mmHg: :Reason For Study: NONRHEUMATIC TRICUSPID VALVE REGURGITATION : :Ordering Physician: ALMAZ, : :PREM Performed By: Tenzin Montes : :Referring: PREM MUSE : + + Interpretation Summary The left ventricle is normal in size and wall thickness. The left ventricular ejection fraction is normal. The ejection fraction is estimated to be 65-70%. The right ventricle is normal in size and function. There is mild to moderate mitral regurgitation. There is moderate tricuspid regurgitation. Compared to the prior echo exam, there has been no change in TR severity. The right ventricular systolic pressure is estimated to be at least 40 mmHg based on an estimated right atrial pressure of 3 mm Hg. Mild pulmonary hypertension. Compared to the prior echo exam, there has been an increase in the severity of pulmonary hypertension. Mild atherosclerotic plaque(s) in the aortic arch. There is aortic root sclerosis/calcification. Procedure: A two-dimensional transthoracic echocardiogram with color flow and Doppler was performed. The study quality was technically adequate. Comparison is made with the echocardiogram of 07/15/2021. The patient was in normal sinus rhythm during the exam. The heart rate ranged between 55-74 bpm during the study. Left Ventricle: The left ventricle is normal in size and wall thickness. There is no thrombus. The ejection fraction is estimated to be 65-70%. The left ventricular ejection fraction is normal. There are no focal wall motion abnormalities. Diastolic parameters suggest a relaxation abnormality of the left ventricle, consistent with probable normal filling pressures. Right Ventricle: The right ventricle is normal in size and function. The right ventricular systolic function is normal. Atria: The left atrial size is normal. There has been no significant change since the previous study. Right atrial size is normal. Mitral Valve: Predominantly heavy posterior mitral annulus calcification. There is moderate to severe mitral annular calcification. The mitral valve chordae are thickened and/or calcified. There is no mitral valve stenosis. There is mild to moderate mitral regurgitation. Aortic Valve: The aortic valve is trileaflet. There is mild aortic valve sclerosis. There is no aortic valve stenosis. No aortic regurgitation is present. Tricuspid Valve: Tricuspid leaflets are thickened. There is no tricuspid stenosis. There is moderate tricuspid regurgitation. The right ventricular systolic pressure is estimated to be at least 40 mmHg based on an estimated right atrial pressure of 3 mm Hg. Compared to the prior echo exam, there has been no change in TR severity. Compared to the prior echo exam, there has been an increase in the severity of pulmonary hypertension. Pulmonic Valve: The pulmonic valve is not well seen, but is grossly normal. There is no pulmonic valvular stenosis. There is mild to moderate pulmonic regurgitation. Great Vessels: The aortic root is normal size. There is aortic root sclerosis/calcification. The dimensions of the ascending aorta are normal. Mild atherosclerotic plaque(s) in the aortic arch. The IVC is of normal diameter and collapses greater than 50% with a sniff. This suggests a low right atrial pressure of 3 mm Hg. Pericardium/ Pleura There is no pericardial effusion. There is an anterior echo-free space consistent with a fat pad. There is no pleural effusion. MMode/2D Measurements & Calculations LVIDd: 3.3 cm LVOT diam: 1.7 cm LVIDs: 2.1 cm Ao root diam: 3.0 cm FS: 36.3 % asc Aorta Diam: 3.1 cm IVSd: 0.91 cm Ao Arch Diam (Prox Trans): 2.1 cm LVPWd: 0.79 cm LV hawley. diameter/BSA (cm/m^2): 2.3 LV sys. diameter/BSA (cm/m^2): 1.5 LA A2 area: 10.9 cm2 RA long axis: 4.3 cm LA A4 area: 11.3 cm2 RA area: 10.1 cm2 LA length (vol): 4.1 cm RA vol: 20.2 ml LA vol: 25.9 ml RA : 14.1 ml/m2 LA vol index: 18.0 ml/m2 IVC diam: 1.1 cm RVD1 (basal): 3.0 cm RVD2 (mid): 2.5 cm TAPSE: 2.5 cm Doppler Measurements & Calculations Ao V2 max: 125.7 cm/sec LVOT Max Minor: 95.6 cm/sec Ao V2 mean: 84.9 cm/sec LV V1 max P.7 mmHg Ao max P.3 mmHg LV V1 VTI: 25.2 cm Ao mean P.2 mmHg EFFIE(I,D): 1.9 cm2 Ao V2 VTI: 30.4 cm EFFIE(V,D): 1.8 cm2 sev ratio: 0.83 EFFIE indexed to BSA (cm^2/m^2): 1.3 MV E max minor: 96.5 cm/sec TR max minor: 304.3 cm/sec MV A max minor: 110.0 cm/sec TR max P.0 mmHg MV E/A: 0.88 PA V2 max: 89.8 cm/sec Med Peak E' Minor: 7.8 cm/sec PA V2 mean: 61.7 cm/sec E/E' med: 12.4 PA mean P.7 mmHg Lat Peak E' Minor: 9.6 cm/sec PA pr(Accel): 5.4 mmHg E/E' lat: 10.1 E/e' average: 11.2 MV dec time: 0.22 sec SV(LVOT): 58.2 ml Reading Physician:04:38 PM
== END ==
LOC: ECHO 07:41
PROVIDERS: Family Provider Physician Assistant Medical; PCP Physician Assistant Medical; Referring Provider Internal Medicine Cardiovascular Disease; Visit Provider Internal Medicine Cardiovascular Disease
DX: I08.3 Combined rheumatic disorders of mitral, aortic and tricuspid valves (principal); I70.0 Atherosclerosis of aorta; I27.20 Pulmonary hypertension, unspecified
CPT/HCPCS: 93306

== ENCOUNTER → 2024-02-22 12:42 | Outpatient (CLI) | payer MEDICARE, OTHER, SELFPAY ==
[2021-02-01 16:11] VITALS: BMI 18.8
--- NOTE | 2024-02-22 12:43 | DI.MG.S_ITS ---
BILATERAL DIGITAL SCREENING MAMMOGRAM 3D/2D WITH CAD: 02/22/2024 CLINICAL: Routine screening. Comparison is made to exams dated: 02/18/2023 mammogram, 09/18/2021 mammogram - [facility], and 11/17/2019 mammogram - [facility]. The breasts are heterogeneously dense, which may obscure small masses (category c / 51-75% glandular tissue). Current study was also evaluated with a Computer Aided Detection (CAD) system. No significant masses, calcifications, or other findings are seen in either breast. There has been no significant interval change. IMPRESSION: NEGATIVE There is no mammographic evidence of malignancy. A 1 year screening mammogram is recommended. Based on the Tyrer Cuzick model (a risk assessment model) the patient's lifetime risk is 2.9% and her 10 year risk is 0.0%. According to the ACR, ACS, and NCCN guidelines, an annual breast MRI exam along with mammogram is recommended if the patient's lifetime risk is 20% or greater. This exam was interpreted at Station ID: [id number]. NOTE: For mammograms, a report in lay terms will be sent to the patient. Approximately 15% of breast malignancies will not be visualized mammographically. In the management of a palpable breast mass, a negative mammogram must not discourage biopsy of a clinically suspicious lesion. Electronically Signed By: Francisco finney/shila:02/22/2024 17:54:58 letter sent: Normal Exam ACR BI-RADS Category 1: Negative
== END ==
PROVIDERS: Family Provider Physician Assistant Medical; PCP Physician Assistant Medical; Referring Provider Physician Assistant Medical; Visit Provider Physician Assistant Medical
DX: Z12.31 Encounter for screening mammogram for malignant neoplasm of breast (principal); R92.333 Mammographic heterogeneous density, bilateral breasts
CPT/HCPCS: 77063; 77067

== ENCOUNTER → 2024-04-16 09:33 | Outpatient (CLI) | payer MEDICARE, OTHER, SELFPAY ==
[2021-02-01 16:11] VITALS: BMI 18.8
--- NOTE | 2024-04-16 | DI.MRI.S_ITS ---
PROCEDURE: MR HEAD/BRAIN WO/W CON INDICATIONS: CHRONIC CENTRAL NEUROPATHIS PAIN / PARESTHESIA TECHNIQUE: Noncontrast axial T1 spin echo, axial T2 fast spin echo, sagittal and axial FLAIR, coronal T2 fast spin echo, axial gradient echo, axial diffusion and ADC through the brain. After the administration of contrast, axial and coronal and sagittal T1 spin echo with fat saturation through the brain. COMPARISON: [facility], CT, CT STROKE, 02/01/2021, 7:50. [facility], CT, CT ANGIO HEAD AND NECK, 02/01/2021, 7:56. [facility], MR, MR HEAD/BRAIN WO CON, 02/01/2021, 10:48. FINDINGS: Image quality: Excellent. CSF spaces: Basal cisterns are patent. No extra-axial fluid collections. Ventricles are normal in size and shape. Brain: No midline shift. No intracranial bleeds or masses. No abnormal intracranial enhancement. There is cerebral volume loss for age. There is periventricular white matter chronic small vessel ischemic change. The brainstem appears normal. Diffusion-weighted images demonstrate no acute infarct. Small foci of prior infarction can be seen, including within the right thalamus. Normal intravascular flow voids are present. Skull and face: Calvarial marrow is normal in signal. Orbits appear normal. Sinuses: Sinuses and mastoids appear clear. IMPRESSION: No imaging explanation is found for this patient's presenting symptoms. No masses or abnormal enhancement can be seen. Prior areas of remote infarction can be seen. Dictated by: Wilmer Mcgovern M.D. on 04/18/2024 at 11:33 Approved by: Wilmer Mcgovern M.D. on 04/18/2024 at 11:34
== END ==
PROVIDERS: Family Provider Physician Assistant Medical; PCP Physician Assistant Medical; Referring Provider Student in an Organized Health Care Education/Training Program; Visit Provider Student in an Organized Health Care Education/Training Program
DX: R20.2 Paresthesia of skin (principal); M79.2 Neuralgia and neuritis, unspecified; G89.29 Other chronic pain; Z86.73 Personal history of transient ischemic attack (TIA), and cerebral infarction without residual deficits
CPT/HCPCS: 70553; A9579

== ENCOUNTER → 2025-03-07 11:44 | Outpatient (CLI) | payer MEDICARE, OTHER, SELFPAY ==
[2021-02-01 16:11] VITALS: BMI 18.8
--- NOTE | 2025-03-07 11:46 | DI.US.S_ITS ---
PROCEDURE: US ARTERIAL DUPLEX LE LT INDICATIONS: LLE COLD RED TOES/FOOT TECHNIQUE: Color and pulse Doppler interrogation was performed of the left lower extremity lower extremity arterial system, with image documentation. COMPARISON: None. FINDINGS: Common femoral artery: 95 cm/sec, with biphasic flow. Deep femoral artery: 69 cm/sec, with biphasic flow. Proximal superficial femoral artery: 92 cm/sec, with biphasic flow. Mid superficial femoral artery: 76 cm/sec, with biphasic flow. Distal superficial femoral artery: 53 cm/sec, with biphasic flow. Popliteal artery: 52 cm/sec, with biphasic flow. Posterior tibial artery: 35 cm/sec, with biphasic flow. Anterior tibial artery/dorsalis pedis: 40 cm/sec, with biphasic flow. Elkins-scale imaging description: Scattered proximal atherosclerotic plaque. No focal stenosis. IMPRESSION: Two vessel runoff to the foot. No arterial velocity elevation to suggest focal arterial stenosis. Biphasic waveforms suggest mild atherosclerotic disease. Dictated by: Pretty Tony M.D. on 03/07/2025 at 17:35 Approved by: Pretty Tony M.D. on 03/07/2025 at 17:38
== END ==
LOC: US 11:45
PROVIDERS: Family Provider Physician Assistant Medical; PCP Physician Assistant Medical; Referring Provider Physician Assistant Medical; Visit Provider Physician Assistant Medical
DX: R20.9 Unspecified disturbances of skin sensation (principal)
CPT/HCPCS: 93926